=== PATIENT | female | born 1930 | race Caucasian/White ===

== ENCOUNTER 2017-07-16 09:08 | Inpatient (IN) | payer MEDICARE, MEDICAID ==
[~2017-07-16] VITALS: Ht 157.5 cm; Wt 54.4 kg
[~2017-07-16 09:08] MED LIST: DIOVAN160 MG ORAL; LIPITOR20 MG ORAL; SYNTHROID25 MCG ORAL; UNOBMED
[2017-07-16] MEDS ORDERED: cefTRIAXone 1 GM in NS 55 ML IV STA (09:10)
[2017-07-16] MEDS ORDERED: Acetaminophen 500mg (ES) tab ORAL ONE (09:15)
--- NOTE | 2017-07-16 09:20 | Emergency Room Report ---
History of Present Illness General Chief Complaint: Fever Source: Patient, Significant Other, EMS Present Illness HPI Patient presents with fevers, chills and productive cough. She's been worsening over the last few days. No medications have been taken. She denies any medical problems. She also complains about some chest pain. More pleuritic - denied pain to RN. The patient denies any nausea vomiting diarrhea dysuria. She feels weakness and decreased appetite at this time. No headache, rashes, joint pain, abdominal pain. H/O HTN, hypothyroidism, hypercholesterolemia Allergies: Coded Allergies: No Known Allergies (Unverified , 11/09/12) Patient History Past Medical History: see triage record Social History: Denies: smoking, alcohol use, drug use Social History Narrative Reviewed Nursing Documentation: PMH: Agreed; PSxH: Agreed Nursing Documentation-PMH Past Medical History: No Stated History Hx Cardiac Problems: Yes Hx Hypertension: Yes Hx Cancer: No Hx Gastrointestinal Problems: No Hx Neurological Problems: No Review of Systems All Other Systems: negative except mentioned in HPI Physical Exam Vital Signs Date Time Temp Pulse Resp B/P (MAP) Pulse Ox O2 Delivery O2 Flow Rate FiO2 07/16/17 09:04 101.2 85 18 160/93 98 Room Air 101.1 Sp02 EP Interpretation: reviewed, normal General Appearance: no apparent distress, GCS 15, non-toxic, other - Frail Head: normocephalic Eyes: bilateral eye normal inspection, bilateral eye PERRL ENT: moist mucus membranes Neck: supple Respiratory: lungs clear, normal breath sounds, no respiratory distress, decreased breath sounds - L Cardiovascular #1: regular rate, rhythm Cardiovascular #2: 2+ radial (R) Gastrointestinal: normal inspection, normal bowel sounds, non tender, no mass, non-distended Musculoskeletal: back normal, gait/station normal, normal range of motion Neurologic: alert, oriented x3, grossly normal Psychiatric: mood/affect normal Skin: normal inspection, warm/dry Medical Decision Making Diagnostic Impression: Primary Impression: Pneumonia Qualified Codes: J18.1 - Lobar pneumonia, unspecified organism Additional Impressions: Pleural effusion, left UTI (urinary tract infection) Qualified Codes: N30.00 - Acute cystitis without hematuria Hypokalemia Leukopenia Qualified Codes: D72.819 - Decreased white blood cell count, unspecified ER Course The patient presents with fever, cough and chest pain. Differential includes pneumonia, bronchitis, bronchospasm, acute myocardial infarction, acute coronary syndrome amongst others. Evaluation will be with EKG, chest x-ray and labs including blood culture and lactate. The patient will be treated with gentle IV hydration and less lactate is elevated. She also given Tylenol and antibiotics. Due to the patient's advanced age and state of debility at this time the patient will need to be admitted to the hospital. EKG without injury. CXR with L effusion and infiltrate. WBC low with L shift. CMP unremarkable (low K, slightly high glucose). BNP minimally elevated. Lactate normal. Troponin negative. Antibiotics administered to cover UTI and pneumonia. Patient improved with treatment, though still with generalized weakness. Admit med Dr. De La Rosa (per request of Dr. York for PMD). Laboratory Tests Test 07/16/17 09:24 07/16/17 11:30 White Blood Count 4.1 K/UL (4.8-10.8) L Red Blood Count 5.33 M/UL (4.20-5.40) Hemoglobin 14.8 G/DL (12.0-16.0) Hematocrit 43.9 % (37.0-47.0) Mean Corpuscular Volume 82 FL (80-99) Mean Corpuscular Hemoglobin 27.8 PG (27.0-31.0) Mean Corpuscular Hemoglobin Concent 33.8 G/DL (32.0-36.0) Red Cell Distribution Width 12.5 % (11.6-14.8) Platelet Count 108 K/UL (150-450) L Mean Platelet Volume 7.6 FL (6.5-10.1) Neutrophils (%) (Auto) % (45.0-75.0) Lymphocytes (%) (Auto) % (20.0-45.0) Monocytes (%) (Auto) % (1.0-10.0) Eosinophils (%) (Auto) % (0.0-3.0) Basophils (%) (Auto) % (0.0-2.0) Differential Total Cells Counted 100 Neutrophils % (Manual) 84 % (45-75) H Lymphocytes % (Manual) 9 % (20-45) L Monocytes % (Manual) 7 % (1-10) Eosinophils % (Manual) 0 % (0-3) Basophils % (Manual) 0 % (0-2) Band Neutrophils 0 % (0-8) Platelet Estimate Decreased L Platelet Morphology Normal Red Blood Cell Morphology Normal Prothrombin Time 9.9 SEC (9.30-11.50) Prothrombin Time INR 0.9 (0.9-1.1) PTT 28 SEC (23-33) Sodium Level 134 MMOL/L (136-145) L Potassium Level 3.2 MMOL/L (3.5-5.1) L Chloride Level 99 MMOL/L (98-107) Carbon Dioxide Level 27 MMOL/L (21-32) Anion Gap 8 mmol/L (5-15) Blood Urea Nitrogen 14 mg/dL (7-18) Creatinine 1.2 MG/DL (0.55-1.30) Estimate Glomerular Filtration Rate mL/min (>60) Glucose Level 138 MG/DL (74-106) H Lactic Acid Level 1.30 mmol/L (0.66-2.22) Calcium Level 8.7 MG/DL (8.5-10.1) Total Bilirubin 1.2 MG/DL (0.2-1.0) H Direct Bilirubin 0.3 MG/DL (0.0-0.3) Aspartate Amino Transferase (AST) 45 U/L (15-37) H Alanine Aminotransferase (ALT) 35 U/L (12-78) Alkaline Phosphatase 67 U/L (46-116) Total Creatine Kinase 65 U/L (26-308) Troponin I 0.000 ng/mL (0.000-0.056) Pro-B-Type Natriuretic Peptide 419 pg/mL (0-125) H Total Protein 7.5 G/DL (6.4-8.2) Albumin 3.8 G/DL (3.4-5.0) Globulin 3.7 g/dL Albumin/Globulin Ratio 1.0 (1.0-2.7) Urine Color Yellow Urine Appearance Clear Urine pH 6 (4.5-8.0) Urine Specific [place] 1.020 (1.005-1.035) Urine Protein 2+ (NEGATIVE) H Urine Glucose (UA) Negative (NEGATIVE) Urine Ketones 3+ (NEGATIVE) H Urine Occult Blood 5+ (NEGATIVE) H Urine Nitrite Negative (NEGATIVE) Urine Bilirubin Negative (NEGATIVE) Urine Urobilinogen 1 MG/DL (0.0-1.0) H Urine Leukocyte Esterase 3+ (NEGATIVE) H Urine RBC 10-15 /HPF (0 - 2) H Urine WBC 10-15 /HPF (0 - 2) H Urine Squamous Epithelial Cells Few /LPF (NONE/OCC) Urine Bacteria Few /HPF (NONE) Microbiology Date/Time Source Procedure Growth Status 07/16/17 09:24 Nasal Nares Influenza Types A,B Antigen (DEVANG) - Final Complete EKG Diagnostic Results Rate: normal Rhythm: NSR ST Segments: no acute changes - T inversions septally Rhythm Strip Diag. Results EP Interpretation: yes Rhythm: NSR, no PVC's, no ectopy Chest X-Ray Diagnostic Results Chest X-Ray Diagnostic Results : Chest X-Ray Ordered: Yes # of Views/Limited/Complete: 1 View Indication: Other EP Interpretation: Yes Interpretation: no pneumothorax, other - LLL infiltrate and infiltrate Impression: Other Electronically Signed by: Electronically signed by Arcadio Wong MD Last Vital Signs Date Time Temp Pulse Resp B/P (MAP) Pulse Ox O2 Delivery O2 Flow Rate FiO2 07/16/17 20:07 72 18 Room Air 21 07/16/17 19:55 99.1 07/16/17 15:23 121/60 94 Status: improved Disposition: ADMITTED INPATIENT Condition: Serious Arcadio Wong M.D. Jul 16, 2017 09:19
[2017-07-16 09:35] VITALS: BP 150/80
[2017-07-16 09:42] LABS: HEMATOCRIT 43.9 % (37.0-47.0); HEMOGLOBIN 14.8 G/DL (12.0-16.0); MEAN CORPUSCULAR VOLUME 82 FL (80-99); PLATELET COUNT 108 K/UL (150-450); RED BLOOD COUNT 5.33 M/UL (4.20-5.40); RED CELL DISTRIBUTION WIDTH 12.5 % (11.6-14.8); WHITE BLOOD COUNT 4.1 K/UL (4.8-10.8)
[2017-07-16 09:48] LABS: INR 0.9 (0.9-1.1)
[2017-07-16 10:04] LABS: ANION GAP 8 mmol/L (5-15); BLOOD UREA NITROGEN 14 mg/dL (7-18); CALCIUM 8.7 MG/DL (8.5-10.1); CARBON DIOXIDE 27 MMOL/L (21-32); CHLORIDE 99 MMOL/L (98-107); CREATININE 1.2 MG/DL (0.55-1.30); POTASSIUM 3.2 MMOL/L (3.5-5.1); SODIUM 134 MMOL/L (136-145)
[2017-07-16] MEDS ORDERED: cefTRIAXone 1 GM in D5W 55 ML IV STA (10:12)
[2017-07-16 10:15] LABS: ALANINE AMINOTRANSFERASE 35 U/L (12-78); ALBUMIN 3.8 G/DL (3.4-5.0); ALKALINE PHOSPHATASE 67 U/L (46-116); ASPARTATE AMINO TRANSFERASE 45 U/L (15-37); BILIRUBIN,TOTAL 1.2 MG/DL (0.2-1.0); CREATINE KINASE 65 U/L (26-308)
--- NOTE | 2017-07-16 10:21 | Diagnostic Imaging Report ---
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 Lungs and pleural spaces remain clear. The heart size is probably normal. Impression: No acute process
[2017-07-16 10:25] LABS: BILIRUBIN,DIRECT 0.3 MG/DL (0.0-0.3)
[2017-07-16 11:40] LABS: APPEARANCE,URINE CLEAR; BILIRUBIN, URINE NEGATIVE (NEGATIVE); GLUCOSE, URINE (UA) NEGATIVE (NEGATIVE); KETONES,URINE 3+ (NEGATIVE); LEUKOCYTE ESTERASE ,URINE 3+ (NEGATIVE); NITRITE,URINE NEGATIVE (NEGATIVE); PH,URINE 6 (4.5-8.0); PROTEIN,URINE 2+ (NEGATIVE); UROBILINOGEN,URINE 1 MG/DL (0.0-1.0)
[2017-07-16 11:57] LABS: COLOR,URINE YELLOW
[2017-07-16] MEDS ORDERED: Mylanta II UD 30ml ORAL PRN (12:45)
[2017-07-16] MEDS ORDERED: Miralax 17gm pkt ORAL PRN (12:45)
[2017-07-16] MEDS ORDERED: Albuterol/Ipratropium 3ml neb HHN PRN (12:45)
[2017-07-16] MEDS ORDERED: Nitroglycerin Subl 0.4mg tab SL PRN (12:45)
[2017-07-16] MEDS ORDERED: Promethazine/Codeine 5ml UD ORAL PRN (12:45)
[2017-07-16 13:01] VITALS: BP 116/65
[2017-07-16 13:33] VITALS: BP 120/67
[2017-07-16] MEDS: Lisinopril 20mg tab ORAL SCH (14:12)
--- NOTE | 2017-07-16 14:26 | Consultation ---
History of Present Illness General Date patient seen: Jul 16, 2017 Chief Complaint: Fever Present Illness HPI 87 year old lady with PMHx of HTN, hypothyroidism, hypercholesterolemia presents with fevers, chills and productive cough. She's been worsening over the last few days. She had a fever of 101 in ER and admitted to telemetry for possible pneumonia and sepsis. she looks comfortable with bouts of cough. Allergies: Coded Allergies: No Known Allergies (Unverified , 11/09/12) Medication History Scheduled Atorvastatin Calcium* (Lipitor*), 20 MG ORAL BEDTIME, (Reported) Levothyroxine Sodium* (Synthroid*), 25 MCG ORAL DAILY, (Reported) Valsartan (Diovan), 160 MG ORAL DAILY, (Reported) Patient History Healthcare decision maker Resuscitation status Full Code Advanced Directive on File Past Medical/Surgical History Past Medical/Surgical History: (1) Hypothyroidism (2) Pneumonia (3) UTI (urinary tract infection) (4) Hypertension Review of Systems All Other Systems: negative except mentioned in HPI Physical Exam General Appearance: WD/WN Lines, tubes and drains: peripheral HEENT: normocephalic, atraumatic Neck: non-tender, normal alignment Respiratory/Chest: rhonchi - left, rhonchi - right Breasts: no masses Cardiovascular/Chest: normal peripheral pulses Abdomen: normal bowel sounds, soft Genitourinary/Rectal: normal genital exam, normal rectal exam Skin Exam: normal pigmentation 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 Last 24 Hour Vital Signs Date Time Temp Pulse Resp B/P (MAP) Pulse Ox O2 Delivery O2 Flow Rate FiO2 07/16/17 14:12 120/67 07/16/17 13:33 97.9 64 20 120/67 95 Room Air 97.9 07/16/17 13:32 98.5 67 23 116/65 95 Room Air 07/16/17 13:01 101.0 67 23 116/65 95 Room Air 101.0 07/16/17 10:43 101.9 07/16/17 09:45 102.1 07/16/17 09:35 102.1 86 18 150/80 98 Room Air 102.1 07/16/17 09:04 101.2 85 18 160/93 98 Room Air 101.1 Laboratory Tests Test 07/16/17 09:24 07/16/17 11:30 White Blood Count 4.1 K/UL (4.8-10.8) L Red Blood Count 5.33 M/UL (4.20-5.40) Hemoglobin 14.8 G/DL (12.0-16.0) Hematocrit 43.9 % (37.0-47.0) Mean Corpuscular Volume 82 FL (80-99) Mean Corpuscular Hemoglobin 27.8 PG (27.0-31.0) Mean Corpuscular Hemoglobin Concent 33.8 G/DL (32.0-36.0) Red Cell Distribution Width 12.5 % (11.6-14.8) Platelet Count 108 K/UL (150-450) L Mean Platelet Volume 7.6 FL (6.5-10.1) Neutrophils (%) (Auto) % (45.0-75.0) Lymphocytes (%) (Auto) % (20.0-45.0) Monocytes (%) (Auto) % (1.0-10.0) Eosinophils (%) (Auto) % (0.0-3.0) Basophils (%) (Auto) % (0.0-2.0) Differential Total Cells Counted 100 Neutrophils % (Manual) 84 % (45-75) H Lymphocytes % (Manual) 9 % (20-45) L Monocytes % (Manual) 7 % (1-10) Eosinophils % (Manual) 0 % (0-3) Basophils % (Manual) 0 % (0-2) Band Neutrophils 0 % (0-8) Platelet Estimate Decreased L Platelet Morphology Normal Red Blood Cell Morphology Normal Prothrombin Time 9.9 SEC (9.30-11.50) Prothromb Time International Ratio 0.9 (0.9-1.1) Activated Partial Thromboplast Time 28 SEC (23-33) Sodium Level 134 MMOL/L (136-145) L Potassium Level 3.2 MMOL/L (3.5-5.1) L Chloride Level 99 MMOL/L (98-107) Carbon Dioxide Level 27 MMOL/L (21-32) Anion Gap 8 mmol/L (5-15) Blood Urea Nitrogen 14 mg/dL (7-18) Creatinine 1.2 MG/DL (0.55-1.30) Estimat Glomerular Filtration Rate mL/min (>60) Glucose Level 138 MG/DL (74-106) H Lactic Acid Level 1.30 mmol/L (0.66-2.22) Calcium Level 8.7 MG/DL (8.5-10.1) Total Bilirubin 1.2 MG/DL (0.2-1.0) H Direct Bilirubin 0.3 MG/DL (0.0-0.3) Aspartate Amino Transf (AST/SGOT) 45 U/L (15-37) H Alanine Aminotransferase (ALT/SGPT) 35 U/L (12-78) Alkaline Phosphatase 67 U/L (46-116) Total Creatine Kinase 65 U/L (26-308) Troponin I 0.000 ng/mL (0.000-0.056) Pro-B-Type Natriuretic Peptide 419 pg/mL (0-125) H Total Protein 7.5 G/DL (6.4-8.2) Albumin 3.8 G/DL (3.4-5.0) Globulin 3.7 g/dL Albumin/Globulin Ratio 1.0 (1.0-2.7) Urine Color Yellow Urine Appearance Clear Urine pH 6 (4.5-8.0) Urine Specific [place] 1.020 (1.005-1.035) Urine Protein 2+ (NEGATIVE) H Urine Glucose (UA) Negative (NEGATIVE) Urine Ketones 3+ (NEGATIVE) H Urine Occult Blood 5+ (NEGATIVE) H Urine Nitrite Negative (NEGATIVE) Urine Bilirubin Negative (NEGATIVE) Urine Urobilinogen 1 MG/DL (0.0-1.0) H Urine Leukocyte Esterase 3+ (NEGATIVE) H Urine RBC 10-15 /HPF (0 - 2) H Urine WBC 10-15 /HPF (0 - 2) H Urine Squamous Epithelial Cells Few /LPF (NONE/OCC) Urine Bacteria Few /HPF (NONE) Microbiology Date/Time Source Procedure Growth Status 07/16/17 09:24 Nasal Nares Influenza Types A,B Antigen (DEVANG) - Final Complete Height (Feet): 5 Height (Inches): 2.00 Weight (Pounds): 120 Medications Current Medications Medications (Trade) Dose Ordered Sig/Alisson Route PRN Reason Start Time Stop Time Status Last Admin Dose Admin Acetaminophen (Tylenol) 650 mg Q4H PRN ORAL fever 07/16/17 12:45 08/15/17 12:44 Al Hydroxide/Mg Hydroxide (Mylanta II) 30 ml Q6H PRN ORAL dyspepsia 07/16/17 12:45 08/15/17 12:44 Albuterol/ Ipratropium (Albuterol/ Ipratropium) 3 ml Q4H PRN HHN Shortness of Breath 07/16/17 12:45 07/21/17 12:44 Cefepime HCl 1 gm/ Dextrose 55 ml @ 110 mls/hr Q24H IV 07/16/17 18:00 07/23/17 17:59 Clonidine HCl (Catapres Tab) 0.1 mg Q4H PRN ORAL For High Blood Pressure 07/16/17 13:00 08/15/17 12:59 Heparin Sodium (Porcine) (Heparin 5000 units/ml) 5,000 units EVERY 12 HOURS SUBQ 07/16/17 21:00 08/15/17 20:59 Levothyroxine Sodium (Synthroid) 25 mcg ACBREAKFAST ORAL 07/17/17 06:30 08/16/17 06:29 Lisinopril (Prinivil) 40 mg DAILY ORAL 07/16/17 13:00 08/15/17 12:59 07/16/17 14:12 Nitroglycerin (Ntg) 0.4 mg Q5M PRN SL Prn Chest Pain 07/16/17 12:45 08/15/17 12:44 Ondansetron HCl (Zofran) 4 mg Q6H PRN IVP Nausea & Vomiting 07/16/17 12:45 08/15/17 12:44 Polyethylene Glycol (Miralax) 17 gm DAILYPRN PRN ORAL Constipation 07/16/17 12:45 08/15/17 12:44 Promethazine HCl/ Codeine (Phenergan with Codeine) 5 ml Q4H PRN ORAL For Cough 07/16/17 12:45 08/15/17 12:44 Temazepam (Restoril) 15 mg HSPRN PRN ORAL Insomnia 07/16/17 12:45 07/23/17 12:44 Vancomycin HCl (Vanco rx to dose) 1 ea DAILY PRN MISC Per rx protocol 07/16/17 12:45 08/15/17 12:44 Vancomycin/Sodium Chloride 250 ml @ 166.667 mls/hr ONCE IVPB 07/16/17 15:00 07/16/17 17:00 Assessment/Plan Problem List: (1) Pneumonia ICD Codes: J18.9 - Pneumonia, unspecified organism SNOMED: 963824010 Qualifiers: Qualified Codes: J18.1 - Lobar pneumonia, unspecified organism (2) Fever ICD Codes: R50.9 - Fever, unspecified SNOMED: 808583167 (3) Pleural effusion, left ICD Codes: J90 - Pleural effusion, not elsewhere classified SNOMED: 10296498 (4) Hypothyroidism ICD Codes: E03.9 - Hypothyroidism, unspecified SNOMED: 43102903 (5) Hypertension ICD Codes: I10 - Essential (primary) hypertension SNOMED: 76317041 Assessment/Plan respiratory treatment check sputum chest PT iv abx monitor BP review home meds Dottie Flores MD Jul 16, 2017 14:26
--- NOTE | 2017-07-16 14:50 | History & Physical ---
History and Physical History & Physicial Dictated for Int Med-Dr Tai no. [id number]. SALUD GILLILAND Jul 16, 2017 14:50
[2017-07-16] MEDS ORDERED: Vancomycin 750mg/NS 250ml IVPB SCH (15:00)
[2017-07-16 15:23] VITALS: BP 121/60
[2017-07-16] MEDS ORDERED: Cefepime HCl 1 GM in D5W 55 ML IV SCH (18:00)
[2017-07-16 20:00] VITALS: BP 143/89
--- NOTE | 2017-07-16 20:00 | History and Physical Report ---
DATE OF ADMISSION: 07/16/2017 CHIEF COMPLAINT: This is an 87-year-old white female who presents with chief complaint of fever and cough. HISTORY OF PRESENT ILLNESS: Began five days prior to admission, the patient began to experience fever. The patient also had a sore throat. Temperature reached to 102 degrees Fahrenheit. The patient also has a cough productive of a greenish sputum. The patient presented to [facility] emergency room. The patient was admitted for fever and cough to rule out pneumonia. REVIEW OF SYSTEMS: CONSTITUTIONAL: The patient denies weight loss or weight gain. The patient complains of fevers as above. The patient complains of chills. HEENT: The patient denies ear or throat pain. The patient denies headache. CARDIOVASCULAR: The patient denies palpitations or chest pain. CHEST: The patient complains of shortness of breath. The patient complains of cough as above. The patient denies wheezes. ABDOMEN: The patient denies nausea, vomiting, diarrhea, or constipation. GENITOURINARY: The patient denies dysuria or increased frequency of urination. NEUROMUSCULAR: The patient denies seizures or generalized weakness. PAST MEDICAL HISTORY: Significant for: 1. Hypertension. 2. Hypothyroidism. 3. Hypercholesterolemia. PAST SURGICAL HISTORY: Significant for left hip replacement in 2011. CURRENT MEDICATIONS: 1. Atorvastatin 20 mg p.o. daily. 2. Levoxyl 0.025 mg p.o. daily. 3. Valsartan 160 mg p.o. daily. ALLERGIES: No known drug allergies. SOCIAL HISTORY: The patient is . The patient denies tobacco or alcohol. PHYSICAL EXAMINATION: VITAL SIGNS: Temperature febrile 102.1, respirations 23, pulse 67, blood pressure 115/65, pulse ox 95% on room air. GENERAL: The patient is well-developed and well-nourished slightly obese white female, in no apparent distress. HEENT: Pupils are equal responsive to light and accommodation. Extraocular movements are intact. NECK: Supple without lymphadenopathy. CHEST: Few scattered rales at bilateral bases, otherwise clear to auscultation bilaterally without wheezes or CARDIOVASCULAR: Regular rhythm and rate. S1, S2 are normal without murmurs, rubs, or gallops. ABDOMEN: Soft, nontender, and nondistended. Positive bowel sounds. No evidence of hepatosplenomegaly. Currently, no rebound or guarding noted. EXTREMITIES: Negative for clubbing, cyanosis, or edema. NEUROLOGIC: Cranial nerves II to XII are grossly intact without focal deficits. Motor strength is 5/5 bilaterally. Deep tendon reflexes are 2+ plantar. LABORATORY STUDIES: WBC 4.1, hemoglobin 14.8, hematocrit 43.9, platelets 108,000. Sodium 134, potassium 3.2, chloride 99, CO2 27, BUN 14, creatinine 1.2, glucose 138. Chest x-ray was reported as no acute disease. ASSESSMENT: This is an 87-year-old white female. 1. Fever. 2. Cough. 3. Shortness of breath. 4. Chest pain. 5. Hypokalemia. 6. Hypertension. 7. Hypothyroidism. 8. Hypercholesterolemia. TREATMENT: 1. Fever/cough/chest pain. Chest pain is pleuritic. The patient is currently on the telemetry unit. The patient has been started empirically on cefepime and vancomycin. Pulmonology consultation obtained with Dr. Flores. We will follow recommendations of Pulmonary. 2. Hypokalemia, the patient received potassium supplementation. 3. Hypertension. Continue valsartan as above. 4. Hypothyroidism. Continue Synthroid as above. 5. Hypercholesterolemia. Continue atorvastatin as above. Rafi Coleman M.D. DR: Grazyna JOB#: [id number] CC:
--- NOTE | 2017-07-16 21:01 | Consultation ---
Consult Note Consult Note ID DIC# [id number] Uziel Ansari MD Jul 16, 2017 21:01
[2017-07-16] MEDS: Heparin 5000 units/ml inj SUBQ SCH (21:31)
[2017-07-17] VITALS: BP 150/75
[2017-07-17 04:00] VITALS: BP 154/83
[2017-07-17] MEDS ORDERED: Levothyroxine 25mcg tab ORAL SCH (06:30)
[2017-07-17 07:47] LABS: ANION GAP 8 mmol/L (5-15); BLOOD UREA NITROGEN 16 mg/dL (7-18); CALCIUM 8.3 MG/DL (8.5-10.1); CARBON DIOXIDE 25 MMOL/L (21-32); CHLORIDE 101 MMOL/L (98-107); CREATININE 1.1 MG/DL (0.55-1.30); POTASSIUM 3.6 MMOL/L (3.5-5.1); SODIUM 134 MMOL/L (136-145)
[2017-07-17 07:49] LABS: BASOPHILS % (AUTO) 1.3 % (0.0-2.0); EOSINOPHILS % (AUTO) 0.2 % (0.0-3.0); HEMATOCRIT 38.5 % (37.0-47.0); HEMOGLOBIN 13.7 G/DL (12.0-16.0); LYMPHOCYTES % (AUTO) 19.1 % (20.0-45.0); MEAN CORPUSCULAR VOLUME 82 FL (80-99); MONOCYTES % (AUTO) 11.2 % (1.0-10.0); NEUTROPHILS % (AUTO) 68.2 % (45.0-75.0); PLATELET COUNT 107 K/UL (150-450); RED BLOOD COUNT 4.72 M/UL (4.20-5.40); RED CELL DISTRIBUTION WIDTH 12.7 % (11.6-14.8)
[2017-07-17 07:52] LABS: ALBUMIN 3.5 G/DL (3.4-5.0); ANION GAP 8 mmol/L (5-15); BLOOD UREA NITROGEN 16 mg/dL (7-18); CALCIUM 8.3 MG/DL (8.5-10.1); CARBON DIOXIDE 25 MMOL/L (21-32); CHLORIDE 101 MMOL/L (98-107); CREATININE 1.1 MG/DL (0.55-1.30); PHOSPHORUS 2.9 MG/DL (2.5-4.9); POTASSIUM 3.6 MMOL/L (3.5-5.1); SODIUM 134 MMOL/L (136-145)
[2017-07-17 08:00] VITALS: BP 115/75
[2017-07-17] MEDS ORDERED: Azithromycin 250mg tab ORAL SCH (09:00)
[2017-07-17] MEDS: Heparin 5000 units/ml inj SUBQ SCH ×2 (09:00→20:34)
[2017-07-17] MEDS: Lisinopril 20mg tab ORAL SCH (09:48)
[2017-07-17 12:00] VITALS: BP 128/69
--- NOTE | 2017-07-17 12:17 | Pulmonology Progress Note ---
Assessment/Plan Problems: (1) Pneumonia (2) Fever (3) Pleural effusion, left (4) Hypothyroidism (5) Hypertension Assessment/Plan improving no sputum yet continue abx check cultures monitor BP dvt prophylaxis Subjective Interval Events: still coughing, afebrile Allergies: Coded Allergies: No Known Allergies (Unverified , 11/09/12) Objective Last 24 Hour Vital Signs Date Time Temp Pulse Resp B/P (MAP) Pulse Ox O2 Delivery O2 Flow Rate FiO2 07/17/17 09:48 115/75 07/17/17 08:00 73 07/17/17 08:00 99.1 72 17 115/75 97 Room Air 99.1 07/17/17 07:45 72 20 Room Air 21 07/17/17 04:00 70 07/17/17 04:00 97.6 75 22 154/83 93 Room Air 97.6 07/17/17 00:00 70 07/17/17 00:00 97.6 70 20 150/75 92 Room Air 97.6 07/16/17 20:07 72 18 Room Air 21 07/16/17 20:00 98.1 84 18 143/89 90 Room Air 98.1 07/16/17 20:00 79 07/16/17 19:55 99.1 07/16/17 18:56 102.0 07/16/17 16:00 73 07/16/17 15:23 98.0 68 20 121/60 94 Room Air 98.0 07/16/17 15:20 73 18 Room Air 21 07/16/17 15:10 73 18 94 Room Air 21 07/16/17 14:12 120/67 07/16/17 13:33 97.9 64 20 120/67 95 Room Air 97.9 07/16/17 13:32 98.5 67 23 116/65 95 Room Air 07/16/17 13:01 101.0 67 23 116/65 95 Room Air 101.0 Intake and Output 07/16/17 07/17/17 19:00 07:00 Intake Total 490.000 ml Output Total 0 ml Balance 490.000 ml Intake Oral 240 ml IV Total 250.000 ml Output Urine Total 0 ml # Voids 1 Objective General Appearance: WD/WN Lines, tubes and drains: peripheral HEENT: normocephalic, atraumatic Neck: non-tender, normal alignment Respiratory/Chest: rhonchi - left, rhonchi - right Breasts: no masses Cardiovascular/Chest: normal peripheral pulses Abdomen: normal bowel sounds, soft Genitourinary/Rectal: normal genital exam, normal rectal exam Skin Exam: normal pigmentation 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 Microbiology Date/Time Source Procedure Growth Status 07/16/17 09:24 Nasal Nares Influenza Types A,B Antigen (DEVANG) - Final Complete 07/16/17 11:30 Urine,Clean Catch Urine Culture - Preliminary Resulted Laboratory Tests 07/17/17 07:20: White Blood Count 4.0L, Red Blood Count 4.72, Hemoglobin 13.7, Hematocrit 38.5, Mean Corpuscular Volume 82, Mean Corpuscular Hemoglobin 29.0, Mean Corpuscular Hemoglobin Concent 35.5, Red Cell Distribution Width 12.7, Platelet Count 107L, Mean Platelet Volume 6.9, Neutrophils (%) (Auto) 68.2, Lymphocytes (%) (Auto) 19.1L, Monocytes (%) (Auto) 11.2H, Eosinophils (%) (Auto) 0.2, Basophils (%) ( Auto) 1.3, Sodium Level 134L, Potassium Level 3.6, Chloride Level 101, Carbon Dioxide Level 25, Anion Gap 8, Blood Urea Nitrogen 16, Creatinine 1.1, Estimat Glomerular Filtration Rate , Glucose Level 102, Calcium Level 8.3L, Phosphorus Level 2.9, Albumin 3.5 Current Medications Medications (Trade) Dose Ordered Sig/Alisson Route PRN Reason Start Time Stop Time Status Last Admin Dose Admin Acetaminophen (Tylenol) 650 mg Q4H PRN ORAL fever 07/16/17 12:45 08/15/17 12:44 07/16/17 18:56 Al Hydroxide/Mg Hydroxide (Mylanta II) 30 ml Q6H PRN ORAL dyspepsia 07/16/17 12:45 08/15/17 12:44 Albuterol/ Ipratropium (Albuterol/ Ipratropium) 3 ml Q4H PRN HHN Shortness of Breath 07/16/17 12:45 07/21/17 12:44 Azithromycin (Zithromax) 500 mg DAILY ORAL 07/17/17 09:00 07/24/17 08:59 07/17/17 09:48 Cefepime HCl 1 gm/ Dextrose 55 ml @ 110 mls/hr Q24H IV 07/16/17 18:00 07/23/17 17:59 07/16/17 18:49 Clonidine HCl (Catapres Tab) 0.1 mg Q4H PRN ORAL For High Blood Pressure 07/16/17 13:00 08/15/17 12:59 Heparin Sodium (Porcine) (Heparin 5000 units/ml) 5,000 units EVERY 12 HOURS SUBQ 07/16/17 21:00 08/15/17 20:59 07/16/17 21:31 Levothyroxine Sodium (Synthroid) 25 mcg ACBREAKFAST ORAL 07/17/17 06:30 08/16/17 06:29 07/17/17 06:25 Lisinopril (Prinivil) 40 mg DAILY ORAL 07/16/17 13:00 08/15/17 12:59 07/17/17 09:48 Nitroglycerin (Ntg) 0.4 mg Q5M PRN SL Prn Chest Pain 07/16/17 12:45 08/15/17 12:44 Ondansetron HCl (Zofran) 4 mg Q6H PRN IVP Nausea & Vomiting 07/16/17 12:45 08/15/17 12:44 Polyethylene Glycol (Miralax) 17 gm DAILYPRN PRN ORAL Constipation 07/16/17 12:45 08/15/17 12:44 Promethazine HCl/ Codeine (Phenergan with Codeine) 5 ml Q4H PRN ORAL For Cough 07/16/17 12:45 08/15/17 12:44 Temazepam (Restoril) 15 mg HSPRN PRN ORAL Insomnia 07/16/17 12:45 07/23/17 12:44 Dottie Flores MD Jul 17, 2017 12:17
--- NOTE | 2017-07-17 12:39 | Internal Med Progress Note ---
Subjective Date of Service: Jul 17, 2017 Physician Name Salud Gilliland Attending Physician Chevy De La Rosa MD Current Medications Medications (Trade) Dose Ordered Sig/Alisson Route PRN Reason Start Time Stop Time Status Last Admin Dose Admin Acetaminophen (Tylenol) 650 mg Q4H PRN ORAL fever 07/16/17 12:45 08/15/17 12:44 07/16/17 18:56 Al Hydroxide/Mg Hydroxide (Mylanta II) 30 ml Q6H PRN ORAL dyspepsia 07/16/17 12:45 08/15/17 12:44 Albuterol/ Ipratropium (Albuterol/ Ipratropium) 3 ml Q4H PRN HHN Shortness of Breath 07/16/17 12:45 07/21/17 12:44 Azithromycin (Zithromax) 500 mg DAILY ORAL 07/17/17 09:00 07/24/17 08:59 07/17/17 09:48 Cefepime HCl 1 gm/ Dextrose 55 ml @ 110 mls/hr Q24H IV 07/16/17 18:00 07/23/17 17:59 07/16/17 18:49 Clonidine HCl (Catapres Tab) 0.1 mg Q4H PRN ORAL For High Blood Pressure 07/16/17 13:00 08/15/17 12:59 Heparin Sodium (Porcine) (Heparin 5000 units/ml) 5,000 units EVERY 12 HOURS SUBQ 07/16/17 21:00 08/15/17 20:59 07/16/17 21:31 Levothyroxine Sodium (Synthroid) 25 mcg ACBREAKFAST ORAL 07/17/17 06:30 08/16/17 06:29 07/17/17 06:25 Lisinopril (Prinivil) 40 mg DAILY ORAL 07/16/17 13:00 08/15/17 12:59 07/17/17 09:48 Nitroglycerin (Ntg) 0.4 mg Q5M PRN SL Prn Chest Pain 07/16/17 12:45 08/15/17 12:44 Ondansetron HCl (Zofran) 4 mg Q6H PRN IVP Nausea & Vomiting 07/16/17 12:45 08/15/17 12:44 Polyethylene Glycol (Miralax) 17 gm DAILYPRN PRN ORAL Constipation 07/16/17 12:45 08/15/17 12:44 Promethazine HCl/ Codeine (Phenergan with Codeine) 5 ml Q4H PRN ORAL For Cough 07/16/17 12:45 08/15/17 12:44 Temazepam (Restoril) 15 mg HSPRN PRN ORAL Insomnia 07/16/17 12:45 07/23/17 12:44 Allergies: Coded Allergies: No Known Allergies (Unverified , 11/09/12) ROS Limited/Unobtainable: No Constitutional: Reports: no symptoms HEENT: Reports: no symptoms Cardiovascular: Reports: no symptoms Respiratory: Reports: no symptoms Gastrointestinal/Abdominal: Reports: no symptoms Genitourinary: Reports: no symptoms Neurologic/Psychiatric: Reports: no symptoms Subjective 87 YO F admitted with cough and pleuritic chest pain. Now bronchitis. Cover for Int Melchor-Dr De La Rosa Objective Last Vital Signs Date Time Temp Pulse Resp B/P (MAP) Pulse Ox O2 Delivery O2 Flow Rate FiO2 07/17/17 12:00 99.9 64 18 128/69 97 Room Air 99.9 07/17/17 07:45 21 General Appearance: WD/WN, no apparent distress, alert EENT: PERRL/EOMI, normal ENT inspection, TMs normal Neck: non-tender, normal alignment, supple, normal inspection Cardiovascular: normal peripheral pulses, normal rate, regular rhythm, no gallop/murmur, no JVD Respiratory/Chest: chest wall non-tender, no respiratory distress, no accessory muscle use, crackles/rales, rhonchi - bilaterally Abdomen: normal bowel sounds, non tender, soft, no organomegaly, no mass Extremities: normal range of motion, non-tender Skin: normal pigmentation, warm/dry Laboratory Tests Test 07/17/17 07:20 White Blood Count 4.0 K/UL (4.8-10.8) L Red Blood Count 4.72 M/UL (4.20-5.40) Hemoglobin 13.7 G/DL (12.0-16.0) Hematocrit 38.5 % (37.0-47.0) Mean Corpuscular Volume 82 FL (80-99) Mean Corpuscular Hemoglobin 29.0 PG (27.0-31.0) Mean Corpuscular Hemoglobin Concent 35.5 G/DL (32.0-36.0) Red Cell Distribution Width 12.7 % (11.6-14.8) Platelet Count 107 K/UL (150-450) L Mean Platelet Volume 6.9 FL (6.5-10.1) Neutrophils (%) (Auto) 68.2 % (45.0-75.0) Lymphocytes (%) (Auto) 19.1 % (20.0-45.0) L Monocytes (%) (Auto) 11.2 % (1.0-10.0) H Eosinophils (%) (Auto) 0.2 % (0.0-3.0) Basophils (%) (Auto) 1.3 % (0.0-2.0) Sodium Level 134 MMOL/L (136-145) L Potassium Level 3.6 MMOL/L (3.5-5.1) Chloride Level 101 MMOL/L (98-107) Carbon Dioxide Level 25 MMOL/L (21-32) Anion Gap 8 mmol/L (5-15) Blood Urea Nitrogen 16 mg/dL (7-18) Creatinine 1.1 MG/DL (0.55-1.30) Estimat Glomerular Filtration Rate mL/min (>60) Glucose Level 102 MG/DL (74-106) Calcium Level 8.3 MG/DL (8.5-10.1) L Phosphorus Level 2.9 MG/DL (2.5-4.9) Albumin 3.5 G/DL (3.4-5.0) Microbiology Date/Time Source Procedure Growth Status 07/16/17 09:24 Nasal Nares Influenza Types A,B Antigen (DEVANG) - Final Complete 07/16/17 11:30 Urine,Clean Catch Urine Culture - Preliminary Resulted Intake and Output 07/16/17 07/17/17 19:00 07:00 Intake Total 490.000 ml Output Total 0 ml Balance 490.000 ml Intake Oral 240 ml IV Total 250.000 ml Output Urine Total 0 ml # Voids 1 Assessment/Plan Problem List: (1) Hypercholesteremia (2) Chest pain, pleuritic (3) Fever (4) Hypothyroidism Assessment & Plan: Continue levoxyl (5) Hypertension Assessment & Plan: Continue lisinopril and clonidine (6) Bronchitis Assessment & Plan: Continue azithromycin and cefepime Status: progressing SALUD GILLILAND Jul 17, 2017 12:39
[2017-07-17] MEDS ORDERED: Nitroglycerin Subl 0.4mg tab SL PRN (16:30)
[2017-07-17 16:44] VITALS: BP 135/73
[2017-07-17] MEDS ORDERED: Mylanta II UD 30ml ORAL PRN (16:45)
[2017-07-17] MEDS ORDERED: Albuterol/Ipratropium 3ml neb HHN PRN (16:45)
[2017-07-17] MEDS ORDERED: Miralax 17gm pkt ORAL PRN (16:48)
[2017-07-17] MEDS: Cefepime HCl 1 GM in NS 55 ML IV SCH (17:50)
[2017-07-17] MEDS ORDERED: Cefepime HCl 1 GM in NS 55 ML IV SCH (18:00)
[2017-07-17] MEDS: Promethazine/Codeine 5ml UD ORAL PRN (18:50)
--- NOTE | 2017-07-17 19:21 | Infectious Diseases Prog Note ---
Assessment/Plan Assessment/Plan A: Fever, SP CAP Cough , improving Shortness of breath: Improving HTN Hypothyroidism. HLD P: Cont pt on IV Cefepime and Zithro d# 2 / 5 Monitor CBC Monitor BMP Monitor Cxray Monitor culture Subjective Allergies: Coded Allergies: No Known Allergies (Unverified , 11/09/12) Subjective afebrile cough has improved Objective Vital Signs Last 24 Hour Vital Signs Date Time Temp Pulse Resp B/P (MAP) Pulse Ox O2 Delivery O2 Flow Rate FiO2 07/17/17 16:44 98.2 68 18 135/73 96 Room Air 98.2 07/17/17 12:00 99.9 64 18 128/69 97 Room Air 99.9 07/17/17 11:42 69 07/17/17 09:48 115/75 07/17/17 08:00 73 07/17/17 08:00 99.1 72 17 115/75 97 Room Air 99.1 07/17/17 07:45 72 20 Room Air 21 07/17/17 04:00 70 07/17/17 04:00 97.6 75 22 154/83 93 Room Air 97.6 07/17/17 00:00 70 07/17/17 00:00 97.6 70 20 150/75 92 Room Air 97.6 07/16/17 20:07 72 18 Room Air 21 07/16/17 20:00 98.1 84 18 143/89 90 Room Air 98.1 07/16/17 20:00 79 07/16/17 19:55 99.1 Height (Feet): 5 Height (Inches): 2.00 Weight (Pounds): 120 Microbiology Date/Time Source Procedure Growth Status 07/16/17 09:24 Nasal Nares Influenza Types A,B Antigen (DEVANG) - Final Complete 07/16/17 11:30 Urine,Clean Catch Urine Culture - Preliminary Resulted Laboratory Tests Test 07/17/17 07:20 White Blood Count 4.0 K/UL (4.8-10.8) L Red Blood Count 4.72 M/UL (4.20-5.40) Hemoglobin 13.7 G/DL (12.0-16.0) Hematocrit 38.5 % (37.0-47.0) Mean Corpuscular Volume 82 FL (80-99) Mean Corpuscular Hemoglobin 29.0 PG (27.0-31.0) Mean Corpuscular Hemoglobin Concent 35.5 G/DL (32.0-36.0) Red Cell Distribution Width 12.7 % (11.6-14.8) Platelet Count 107 K/UL (150-450) L Mean Platelet Volume 6.9 FL (6.5-10.1) Neutrophils (%) (Auto) 68.2 % (45.0-75.0) Lymphocytes (%) (Auto) 19.1 % (20.0-45.0) L Monocytes (%) (Auto) 11.2 % (1.0-10.0) H Eosinophils (%) (Auto) 0.2 % (0.0-3.0) Basophils (%) (Auto) 1.3 % (0.0-2.0) Sodium Level 134 MMOL/L (136-145) L Potassium Level 3.6 MMOL/L (3.5-5.1) Chloride Level 101 MMOL/L (98-107) Carbon Dioxide Level 25 MMOL/L (21-32) Anion Gap 8 mmol/L (5-15) Blood Urea Nitrogen 16 mg/dL (7-18) Creatinine 1.1 MG/DL (0.55-1.30) Estimat Glomerular Filtration Rate mL/min (>60) Glucose Level 102 MG/DL (74-106) Calcium Level 8.3 MG/DL (8.5-10.1) L Phosphorus Level 2.9 MG/DL (2.5-4.9) Albumin 3.5 G/DL (3.4-5.0) Current Medications Medications (Trade) Dose Ordered Sig/Alisson Route PRN Reason Start Time Stop Time Status Last Admin Dose Admin Acetaminophen (Tylenol) 650 mg Q4H PRN ORAL fever 07/17/17 16:45 08/15/17 12:44 Al Hydroxide/Mg Hydroxide (Mylanta II) 30 ml Q6H PRN ORAL dyspepsia 07/17/17 16:45 08/15/17 16:44 Albuterol/ Ipratropium (Albuterol/ Ipratropium) 3 ml Q4H PRN HHN Shortness of Breath 07/17/17 16:45 07/21/17 12:44 Azithromycin (Zithromax) 500 mg DAILY ORAL 07/18/17 09:00 4/23/18 23:59 Cefepime HCl 1 gm/ Sodium Chloride 55 ml @ 110 mls/hr Q24H IV 07/17/17 18:00 07/23/17 23:59 07/17/17 17:50 Cetylpyridinium Chloride (Cepacol) 1 lozg EVERY 2 HOURS PRN KIM For THROAT Pain 07/17/17 16:45 08/16/17 16:44 07/17/17 17:50 Clonidine HCl (Catapres Tab) 0.1 mg Q4H PRN ORAL for sbp more than 160 07/17/17 17:00 08/15/17 12:59 Heparin Sodium (Porcine) (Heparin 5000 units/ml) 5,000 units EVERY 12 HOURS SUBQ 07/17/17 21:00 08/15/17 20:59 Levothyroxine Sodium (Synthroid) 25 mcg ACBREAKFAST ORAL 07/18/17 06:30 08/16/17 06:29 Lisinopril (Prinivil) 40 mg DAILY ORAL 07/18/17 09:00 08/15/17 12:59 Nitroglycerin (Ntg) 0.4 mg Q5M PRN SL Prn Chest Pain 07/17/17 16:30 08/15/17 12:44 Ondansetron HCl (Zofran) 4 mg Q6H PRN IVP Nausea & Vomiting 07/17/17 16:48 08/15/17 16:47 Polyethylene Glycol (Miralax) 17 gm DAILYPRN PRN ORAL Constipation 07/17/17 16:48 08/16/17 16:47 Promethazine HCl/ Codeine (Phenergan with Codeine) 5 ml Q4H PRN ORAL For Cough 07/17/17 16:45 08/15/17 12:44 07/17/17 18:50 Temazepam (Restoril) 15 mg HSPRN PRN ORAL Insomnia 07/17/17 16:48 07/24/17 16:47 Uziel Ansari MD Jul 17, 2017 19:21
[2017-07-17 20:00] VITALS: BP 131/77
--- NOTE | 2017-07-17 21:24 | Cardiology Report ---
APPROVED REPORT EKG Measurement Heart [id number] Normal sinus rhythm Left axis deviation T wave abnormality, consider anterior ischemia Abnormal ECG
--- NOTE | 2017-07-17 22:00 | Consultation ---
DATE OF CONSULTATION: 07/16/2017 INFECTIOUS DISEASES CONSULTATION CONSULTING PHYSICIAN: Uziel Ansari M.D. REFERRING PHYSICIAN: Dottie Flores M.D. REASON FOR CONSULTATION: Evaluation of the patient for pneumonia. HISTORY OF PRESENT ILLNESS: The patient is an 87-year-old pleasant female with multiple medical problems as listed below, who came to the hospital with chief complaint of fever, cough, and shortness of breath. The patient was admitted to this medical center with impression of community-acquired pneumonia. Infectious Disease consultation has been requested for further evaluation of the patient and antibiotic management. PAST MEDICAL HISTORY: 1. Hypertension. 2. Hypothyroidism. 3. Hyperlipidemia. 4. History of left hip replacement. MEDICATIONS: IV vancomycin and cefepime. ALLERGIES: No known drug allergies. SOCIAL HISTORY: The patient has no history of alcohol or drug abuse. FAMILY HISTORY: Not contributing. PHYSICAL EXAMINATION: VITAL SIGNS: Temperature 98 degrees, blood pressure 135/73, pulse 68, respiratory rate 18, and T-max 102 degrees. HEENT: No pale conjunctivae. No icterus. NECK: No lymphadenopathy. CHEST: Clear. HEART: S1 and S2. ABDOMEN: Soft and nontender. EXTREMITIES: No cyanosis at this time. NEUROLOGIC: Awake. LABORATORY AND DIAGNOSTIC DATA: White blood cells 4, hemoglobin 13, and platelets 107,000. BUN 16 and creatinine 1.3. Rapid influenza test negative. Urine culture pending. Chest x-ray, no acute process. ASSESSMENT: The patient is an 87-year-old female with: 1. Fever. 2. Community-acquired pneumonia/bronchitis, ( negative chest x-ray). 3. Rapid influenza test negative. PLAN: 1. We will continue the patient on cefepime. Add Zithromax, discontinue vancomycin. 2. Monitor CBC. 3. Monitor BMP. 4. Monitor cultures (blood, sputum, and urine). 5. Monitor chest x-ray. 6. Based on the patient's clinical course and labs, we will do further recommendations. Thank you, Dr. Flores, for allowing me to participate in the care of this patient. I will follow the patient with you during this hospitalization. Uziel Ansari M.D. DR: Keila JOB#: [id number] CC:
[2017-07-18 05:27] VITALS: BP 111/65
[2017-07-18] MEDS: Levothyroxine 25mcg tab ORAL SCH (06:19)
[2017-07-18 06:22] LABS: HEMATOCRIT 36.5 % (37.0-47.0); HEMOGLOBIN 13.1 G/DL (12.0-16.0); MEAN CORPUSCULAR VOLUME 81 FL (80-99); PLATELET COUNT 97 K/UL (150-450); RED BLOOD COUNT 4.49 M/UL (4.20-5.40); RED CELL DISTRIBUTION WIDTH 12.5 % (11.6-14.8); WHITE BLOOD COUNT 3.3 K/UL (4.8-10.8)
[2017-07-18 06:44] LABS: ALANINE AMINOTRANSFERASE 27 U/L (12-78); ALBUMIN 3.1 G/DL (3.4-5.0); ALBUMIN/GLOBULIN RATIO 0.9 (1.0-2.7); ALKALINE PHOSPHATASE 48 U/L (46-116); ANION GAP 5 mmol/L (5-15); ASPARTATE AMINO TRANSFERASE 35 U/L (15-37); BILIRUBIN,TOTAL 0.8 MG/DL (0.2-1.0); BLOOD UREA NITROGEN 18 mg/dL (7-18); CALCIUM 8.4 MG/DL (8.5-10.1); CARBON DIOXIDE 27 MMOL/L (21-32); CHLORIDE 105 MMOL/L (98-107); CREATININE 1.1 MG/DL (0.55-1.30); PHOSPHORUS 3.6 MG/DL (2.5-4.9); POTASSIUM 3.4 MMOL/L (3.5-5.1); SODIUM 137 MMOL/L (136-145)
[2017-07-18 08:14] VITALS: BP 108/62
[2017-07-18 08:25] VITALS: BP 108/62
[2017-07-18] MEDS ORDERED: Tubing IV Secondary IV ONE (08:53)
[2017-07-18] MEDS ORDERED: Lisinopril 20mg tab ORAL SCH (09:00)
[2017-07-18] MEDS: Heparin 5000 units/ml inj SUBQ SCH ×2 (09:00→20:20)
[2017-07-18] MEDS: Azithromycin 250mg tab ORAL SCH (09:43)
[2017-07-18] MEDS: Promethazine/Codeine 5ml UD ORAL PRN ×2 (09:52→18:01)
--- NOTE | 2017-07-18 11:38 | Infectious Diseases Prog Note ---
Assessment/Plan Assessment/Plan A: Fever, SP CAP Cough , improving Shortness of breath: Improving Rapid influenza test negative. Pancytopenia HTN Hypothyroidism. HLD P: Cont pt on IV Cefepime and Zithro d# 4 / 5 Monitor CBC Monitor BMP Monitor Cxray Monitor culture (blood, sputum, and urine). HIV, Hep panel Subjective Allergies: Coded Allergies: No Known Allergies (Unverified , 11/09/12) Subjective afebrile cough has improved Objective Vital Signs Last 24 Hour Vital Signs Date Time Temp Pulse Resp B/P (MAP) Pulse Ox O2 Delivery O2 Flow Rate FiO2 07/18/17 09:00 102/62 07/18/17 08:25 98.8 70 18 108/62 70 Room Air 98.8 07/18/17 07:29 Room Air 21 07/18/17 05:27 98.6 60 16 111/65 94 Room Air 98.6 07/17/17 20:00 99.0 68 18 131/77 93 Room Air 99.0 07/17/17 19:14 77 20 Room Air 21 07/17/17 16:44 98.2 68 18 135/73 96 Room Air 98.2 07/17/17 12:00 99.9 64 18 128/69 97 Room Air 99.9 07/17/17 11:42 69 Height (Feet): 5 Height (Inches): 2.00 Weight (Pounds): 120 HEENT: anicteric Respiratory/Chest: no accessory muscle use Cardiovascular: no gallop/murmur Abdomen: non distended Microbiology Date/Time Source Procedure Growth Status 07/16/17 10:09 Blood Blood Culture - Preliminary NO GROWTH AFTER 24 HOURS Resulted 07/16/17 09:24 Blood Blood Culture - Preliminary NO GROWTH AFTER 24 HOURS Resulted 07/17/17 14:00 Sputum Gram Stain - Final Resulted 07/17/17 14:00 Sputum Sputum Culture Pending Resulted 07/16/17 09:24 Nasal Nares Influenza Types A,B Antigen (DEVANG) - Final Complete 07/16/17 11:30 Urine,Clean Catch Urine Culture - Preliminary Mixed Urogenital Contaminants Resulted Laboratory Tests Test 07/18/17 05:40 White Blood Count 3.3 K/UL (4.8-10.8) L Red Blood Count 4.49 M/UL (4.20-5.40) Hemoglobin 13.1 G/DL (12.0-16.0) Hematocrit 36.5 % (37.0-47.0) L Mean Corpuscular Volume 81 FL (80-99) Mean Corpuscular Hemoglobin 29.3 PG (27.0-31.0) Mean Corpuscular Hemoglobin Concent 36.0 G/DL (32.0-36.0) Red Cell Distribution Width 12.5 % (11.6-14.8) Platelet Count 97 K/UL (150-450) L Mean Platelet Volume 7.2 FL (6.5-10.1) Neutrophils (%) (Auto) % (45.0-75.0) Lymphocytes (%) (Auto) % (20.0-45.0) Monocytes (%) (Auto) % (1.0-10.0) Eosinophils (%) (Auto) % (0.0-3.0) Basophils (%) (Auto) % (0.0-2.0) Differential Total Cells Counted 100 Neutrophils % (Manual) 56 % (45-75) Lymphocytes % (Manual) 27 % (20-45) Monocytes % (Manual) 14 % (1-10) H Eosinophils % (Manual) 0 % (0-3) Basophils % (Manual) 0 % (0-2) Band Neutrophils 3 % (0-8) Platelet Estimate Decreased L Platelet Morphology Normal Red Blood Cell Morphology Normal Erythrocyte Sedimentation Rate 21 MM/HR (0-30) Sodium Level 137 MMOL/L (136-145) Potassium Level 3.4 MMOL/L (3.5-5.1) L Chloride Level 105 MMOL/L (98-107) Carbon Dioxide Level 27 MMOL/L (21-32) Anion Gap 5 mmol/L (5-15) Blood Urea Nitrogen 18 mg/dL (7-18) Creatinine 1.1 MG/DL (0.55-1.30) Estimat Glomerular Filtration Rate mL/min (>60) Glucose Level 95 MG/DL (74-106) Calcium Level 8.4 MG/DL (8.5-10.1) L Phosphorus Level 3.6 MG/DL (2.5-4.9) Magnesium Level 2.0 MG/DL (1.8-2.4) Total Bilirubin 0.8 MG/DL (0.2-1.0) Aspartate Amino Transf (AST/SGOT) 35 U/L (15-37) Alanine Aminotransferase (ALT/SGPT) 27 U/L (12-78) Alkaline Phosphatase 48 U/L (46-116) Total Protein 6.6 G/DL (6.4-8.2) Albumin 3.1 G/DL (3.4-5.0) L Globulin 3.5 g/dL Albumin/Globulin Ratio 0.9 (1.0-2.7) L Current Medications Medications (Trade) Dose Ordered Sig/Alisson Route PRN Reason Start Time Stop Time Status Last Admin Dose Admin Acetaminophen (Tylenol) 650 mg Q4H PRN ORAL fever 07/17/17 16:45 08/15/17 12:44 Al Hydroxide/Mg Hydroxide (Mylanta II) 30 ml Q6H PRN ORAL dyspepsia 07/17/17 16:45 08/15/17 16:44 Albuterol/ Ipratropium (Albuterol/ Ipratropium) 3 ml Q4H PRN HHN Shortness of Breath 07/17/17 16:45 07/21/17 12:44 Azithromycin (Zithromax) 500 mg DAILY ORAL 07/18/17 09:00 07/24/17 23:59 07/18/17 09:43 Cefepime HCl 1 gm/ Sodium Chloride 55 ml @ 110 mls/hr Q24H IV 07/17/17 18:00 07/23/17 23:59 07/17/17 17:50 Cetylpyridinium Chloride (Cepacol) 1 lozg EVERY 2 HOURS PRN KIM For THROAT Pain 07/17/17 16:45 08/16/17 16:44 07/18/17 09:52 Clonidine HCl (Catapres Tab) 0.1 mg Q4H PRN ORAL for sbp more than 160 07/17/17 17:00 08/15/17 12:59 Heparin Sodium (Porcine) (Heparin 5000 units/ml) 5,000 units EVERY 12 HOURS SUBQ 07/17/17 21:00 08/15/17 20:59 Levothyroxine Sodium (Synthroid) 25 mcg ACBREAKFAST ORAL 07/18/17 06:30 08/16/17 06:29 07/18/17 06:19 Lisinopril (Prinivil) 40 mg DAILY ORAL 07/18/17 09:00 08/15/17 12:59 Nitroglycerin (Ntg) 0.4 mg Q5M PRN SL Prn Chest Pain 07/17/17 16:30 08/15/17 12:44 Ondansetron HCl (Zofran) 4 mg Q6H PRN IVP Nausea & Vomiting 07/17/17 16:48 08/15/17 16:47 Polyethylene Glycol (Miralax) 17 gm DAILYPRN PRN ORAL Constipation 07/17/17 16:48 08/16/17 16:47 Promethazine HCl/ Codeine (Phenergan with Codeine) 5 ml Q4H PRN ORAL For Cough 07/17/17 16:45 08/15/17 12:44 07/18/17 09:52 Temazepam (Restoril) 15 mg HSPRN PRN ORAL Insomnia 07/17/17 16:48 07/24/17 16:47 Uziel Ansari MD Jul 18, 2017 11:38
[2017-07-18 12:00] VITALS: BP 112/62
[2017-07-18] MEDS ORDERED: Sennosides 8.6mg ORAL SCH (14:00)
--- NOTE | 2017-07-18 14:35 | Pulmonology Progress Note ---
Assessment/Plan Problems: (1) Pneumonia (2) Fever (3) Pleural effusion, left (4) Hypothyroidism (5) Hypertension Assessment/Plan improving no sputum yet, dulture pending continue abx, on Cefepime and Zithromx iv check cultures monitor BP dvt prophylaxis repeat cxr in am Subjective ROS Limited/Unobtainable: No Interval Events: still coughing Allergies: Coded Allergies: No Known Allergies (Unverified , 11/09/12) Objective Last 24 Hour Vital Signs Date Time Temp Pulse Resp B/P (MAP) Pulse Ox O2 Delivery O2 Flow Rate FiO2 07/18/17 12:00 98.1 60 18 112/62 94 Room Air 98.1 07/18/17 09:00 102/62 07/18/17 08:25 98.8 70 18 108/62 70 Room Air 98.8 07/18/17 07:29 Room Air 21 07/18/17 05:27 98.6 60 16 111/65 94 Room Air 98.6 07/17/17 20:00 99.0 68 18 131/77 93 Room Air 99.0 07/17/17 19:14 77 20 Room Air 21 07/17/17 16:44 98.2 68 18 135/73 96 Room Air 98.2 Intake and Output 07/17/17 07/18/17 19:00 07:00 Intake Total 527 ml 105 ml Balance 527 ml 105 ml Intake Oral 472 ml 50 ml IV Total 55 ml 55 ml # Voids 2 1 Objective General Appearance: WD/WN Lines, tubes and drains: peripheral HEENT: normocephalic, atraumatic Neck: non-tender, normal alignment Respiratory/Chest: rhonchi - left, rhonchi - right Breasts: no masses Cardiovascular/Chest: normal peripheral pulses Abdomen: normal bowel sounds, soft Genitourinary/Rectal: normal genital exam, normal rectal exam Skin Exam: normal pigmentation 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 Microbiology Date/Time Source Procedure Growth Status 07/16/17 10:09 Blood Blood Culture - Preliminary NO GROWTH AFTER 24 HOURS Resulted 07/16/17 09:24 Blood Blood Culture - Preliminary NO GROWTH AFTER 24 HOURS Resulted 07/17/17 14:00 Sputum Gram Stain - Final Resulted 07/17/17 14:00 Sputum Sputum Culture Pending Resulted 07/16/17 09:24 Nasal Nares Influenza Types A,B Antigen (DEVANG) - Final Complete 07/16/17 11:30 Urine,Clean Catch Urine Culture - Preliminary Mixed Urogenital Contaminants Resulted Laboratory Tests 07/18/17 05:40: White Blood Count 3.3L, Red Blood Count 4.49, Hemoglobin 13.1, Hematocrit 36.5L , Mean Corpuscular Volume 81, Mean Corpuscular Hemoglobin 29.3, Mean Corpuscular Hemoglobin Concent 36.0, Red Cell Distribution Width 12.5, Platelet Count 97L, Mean Platelet Volume 7.2, Neutrophils (%) (Auto) , Lymphocytes (%) ( Auto) , Monocytes (%) (Auto) , Eosinophils (%) (Auto) , Basophils (%) (Auto) , Differential Total Cells Counted 100, Neutrophils % (Manual) 56, Lymphocytes % ( Manual) 27, Monocytes % (Manual) 14H, Eosinophils % (Manual) 0, Basophils % ( Manual) 0, Band Neutrophils 3, Platelet Estimate DecreasedL, Platelet Morphology Normal, Red Blood Cell Morphology Normal, Erythrocyte Sedimentation Rate 21, Sodium Level 137, Potassium Level 3.4L, Chloride Level 105, Carbon Dioxide Level 27, Anion Gap 5, Blood Urea Nitrogen 18, Creatinine 1.1, Estimat Glomerular Filtration Rate , Glucose Level 95, Calcium Level 8.4L, Phosphorus Level 3.6, Magnesium Level 2.0, Total Bilirubin 0.8, Aspartate Amino Transf (AST /SGOT) 35, Alanine Aminotransferase (ALT/SGPT) 27, Alkaline Phosphatase 48, Total Protein 6.6, Albumin 3.1L, Globulin 3.5, Albumin/Globulin Ratio 0.9L, Hepatitis A IgM Antibody [Pending], Hepatitis B Surface Antigen [Pending], Hepatitis B Core IgM Antibody [Pending], Hepatitis C Antibody [Pending], HIV (1& 2) Antibody Rapid Negative Current Medications Medications (Trade) Dose Ordered Sig/Alisson Route PRN Reason Start Time Stop Time Status Last Admin Dose Admin Acetaminophen (Tylenol) 650 mg Q4H PRN ORAL fever 07/17/17 16:45 08/15/17 12:44 Al Hydroxide/Mg Hydroxide (Mylanta II) 30 ml Q6H PRN ORAL dyspepsia 07/17/17 16:45 08/15/17 16:44 Albuterol/ Ipratropium (Albuterol/ Ipratropium) 3 ml Q4H PRN HHN Shortness of Breath 07/17/17 16:45 07/21/17 12:44 Azithromycin (Zithromax) 500 mg DAILY ORAL 07/18/17 09:00 07/24/17 23:59 07/18/17 09:43 Cefepime HCl 1 gm/ Sodium Chloride 55 ml @ 110 mls/hr Q24H IV 07/17/17 18:00 07/23/17 23:59 07/17/17 17:50 Cetylpyridinium Chloride (Cepacol) 1 lozg EVERY 2 HOURS PRN KIM For THROAT Pain 07/17/17 16:45 08/16/17 16:44 07/18/17 09:52 Clonidine HCl (Catapres Tab) 0.1 mg Q4H PRN ORAL for sbp more than 160 07/17/17 17:00 08/15/17 12:59 Docusate Sodium (Colace) 100 mg THREE TIMES A DAY ORAL 07/18/17 14:00 08/17/17 13:59 Heparin Sodium (Porcine) (Heparin 5000 units/ml) 5,000 units EVERY 12 HOURS SUBQ 07/18/17 21:00 08/15/17 20:59 Levothyroxine Sodium (Synthroid) 25 mcg ACBREAKFAST ORAL 07/18/17 06:30 08/16/17 06:29 07/18/17 06:19 Lisinopril (Prinivil) 40 mg DAILY ORAL 07/19/17 09:00 08/15/17 12:59 Mineral Oil (Fleet's Mineral Oil Enema) 133 ml EVERY OTHER DAY RECTAL 07/20/17 09:00 08/19/17 08:59 Nitroglycerin (Ntg) 0.4 mg Q5M PRN SL Prn Chest Pain 07/17/17 16:30 08/15/17 12:44 Ondansetron HCl (Zofran) 4 mg Q6H PRN IVP Nausea & Vomiting 07/17/17 16:48 08/15/17 16:47 Polyethylene Glycol (Miralax) 17 gm BEDTIME ORAL 07/18/17 21:00 08/17/17 20:59 Polyethylene Glycol (Miralax) 17 gm DAILYPRN PRN ORAL Constipation 07/17/17 16:48 08/16/17 16:47 Promethazine HCl/ Codeine (Phenergan with Codeine) 5 ml Q4H PRN ORAL For Cough 07/17/17 16:45 08/15/17 12:44 07/18/17 09:52 Sennosides (Senokot) 8.6 tab DAILY ORAL 07/18/17 14:00 08/17/17 13:59 Temazepam (Restoril) 15 mg HSPRN PRN ORAL Insomnia 07/17/17 16:48 07/24/17 16:47 Dottie Flores MD Jul 18, 2017 14:35
[2017-07-18] MEDS: Docusate 100mg cap ORAL SCH ×2 (14:50→18:00)
--- NOTE | 2017-07-18 15:24 | Diagnostic Imaging Report ---
Indications: Dysphagia Technique: Patient ingested multiple substances under the supervision of speech pathology. Video fluoroscopic recording performed. Total fluoroscopy time 219 seconds. Total dose area product 0.3680 mGycm2 Comparison: none Findings: Multiple episodes of penetration of thin liquid barium observed. No ye aspiration. With nectar thick and honey thick liquid barium barium puree, no aspiration or penetration demonstrated. There is some delay in initiation of deglutition. Impression: Positive for penetration of thin liquid barium Please refer to speech pathology report for more detailed analysis
[2017-07-18 16:00] VITALS: BP 102/66
--- NOTE | 2017-07-18 17:51 | Internal Med Progress Note ---
Subjective Date of Service: Jul 18, 2017 Physician Name Coleman,Salud Attending Physician Chevy De La Rosa MD Current Medications Medications (Trade) Dose Ordered Sig/Alisson Route PRN Reason Start Time Stop Time Status Last Admin Dose Admin Acetaminophen (Tylenol) 650 mg Q4H PRN ORAL fever 07/17/17 16:45 08/15/17 12:44 Al Hydroxide/Mg Hydroxide (Mylanta II) 30 ml Q6H PRN ORAL dyspepsia 07/17/17 16:45 08/15/17 16:44 Albuterol/ Ipratropium (Albuterol/ Ipratropium) 3 ml Q4H PRN HHN Shortness of Breath 07/17/17 16:45 07/21/17 12:44 Azithromycin (Zithromax) 500 mg DAILY ORAL 07/18/17 09:00 07/24/17 23:59 07/18/17 09:43 Cefepime HCl 1 gm/ Sodium Chloride 55 ml @ 110 mls/hr Q24H IV 07/17/17 18:00 07/23/17 23:59 07/17/17 17:50 Cetylpyridinium Chloride (Cepacol) 1 lozg EVERY 2 HOURS PRN KIM For THROAT Pain 07/17/17 16:45 08/16/17 16:44 07/18/17 09:52 Clonidine HCl (Catapres Tab) 0.1 mg Q4H PRN ORAL for sbp more than 160 07/17/17 17:00 08/15/17 12:59 Docusate Sodium (Colace) 100 mg THREE TIMES A DAY ORAL 07/18/17 14:00 08/17/17 13:59 07/18/17 14:50 Heparin Sodium (Porcine) (Heparin 5000 units/ml) 5,000 units EVERY 12 HOURS SUBQ 07/18/17 21:00 08/15/17 20:59 Levothyroxine Sodium (Synthroid) 25 mcg ACBREAKFAST ORAL 07/18/17 06:30 08/16/17 06:29 07/18/17 06:19 Lisinopril (Prinivil) 40 mg DAILY ORAL 07/19/17 09:00 08/15/17 12:59 Mineral Oil (Fleet's Mineral Oil Enema) 133 ml EVERY OTHER DAY RECTAL 07/20/17 09:00 08/19/17 08:59 Nitroglycerin (Ntg) 0.4 mg Q5M PRN SL Prn Chest Pain 07/17/17 16:30 08/15/17 12:44 Ondansetron HCl (Zofran) 4 mg Q6H PRN IVP Nausea & Vomiting 07/17/17 16:48 08/15/17 16:47 Polyethylene Glycol (Miralax) 17 gm BEDTIME ORAL 07/18/17 21:00 08/17/17 20:59 Polyethylene Glycol (Miralax) 17 gm DAILYPRN PRN ORAL Constipation 07/17/17 16:48 08/16/17 16:47 Promethazine HCl/ Codeine (Phenergan with Codeine) 5 ml Q4H PRN ORAL For Cough 07/17/17 16:45 08/15/17 12:44 07/18/17 09:52 Sennosides (Senokot) 8.6 tab DAILY ORAL 07/18/17 14:00 08/17/17 13:59 07/18/17 14:49 Temazepam (Restoril) 15 mg HSPRN PRN ORAL Insomnia 07/17/17 16:48 07/24/17 16:47 Allergies: Coded Allergies: No Known Allergies (Unverified , 11/09/12) ROS Limited/Unobtainable: No Constitutional: Reports: no symptoms HEENT: Reports: no symptoms Cardiovascular: Reports: no symptoms Respiratory: Reports: cough Gastrointestinal/Abdominal: Reports: no symptoms Genitourinary: Reports: no symptoms Neurologic/Psychiatric: Reports: no symptoms Subjective 87 YO F admitted with cough and pleuritic chest pain. Now bronchitis. Cover for Int Melchor-Dr De La Rosa Objective Last Vital Signs Date Time Temp Pulse Resp B/P (MAP) Pulse Ox O2 Delivery O2 Flow Rate FiO2 07/18/17 16:00 98.0 63 20 102/66 93 98.0 07/18/17 12:00 Room Air 07/18/17 07:29 21 Laboratory Tests Test 07/18/17 05:40 White Blood Count 3.3 K/UL (4.8-10.8) L Red Blood Count 4.49 M/UL (4.20-5.40) Hemoglobin 13.1 G/DL (12.0-16.0) Hematocrit 36.5 % (37.0-47.0) L Mean Corpuscular Volume 81 FL (80-99) Mean Corpuscular Hemoglobin 29.3 PG (27.0-31.0) Mean Corpuscular Hemoglobin Concent 36.0 G/DL (32.0-36.0) Red Cell Distribution Width 12.5 % (11.6-14.8) Platelet Count 97 K/UL (150-450) L Mean Platelet Volume 7.2 FL (6.5-10.1) Neutrophils (%) (Auto) % (45.0-75.0) Lymphocytes (%) (Auto) % (20.0-45.0) Monocytes (%) (Auto) % (1.0-10.0) Eosinophils (%) (Auto) % (0.0-3.0) Basophils (%) (Auto) % (0.0-2.0) Differential Total Cells Counted 100 Neutrophils % (Manual) 56 % (45-75) Lymphocytes % (Manual) 27 % (20-45) Monocytes % (Manual) 14 % (1-10) H Eosinophils % (Manual) 0 % (0-3) Basophils % (Manual) 0 % (0-2) Band Neutrophils 3 % (0-8) Platelet Estimate Decreased L Platelet Morphology Normal Red Blood Cell Morphology Normal Erythrocyte Sedimentation Rate 21 MM/HR (0-30) Sodium Level 137 MMOL/L (136-145) Potassium Level 3.4 MMOL/L (3.5-5.1) L Chloride Level 105 MMOL/L (98-107) Carbon Dioxide Level 27 MMOL/L (21-32) Anion Gap 5 mmol/L (5-15) Blood Urea Nitrogen 18 mg/dL (7-18) Creatinine 1.1 MG/DL (0.55-1.30) Estimat Glomerular Filtration Rate mL/min (>60) Glucose Level 95 MG/DL (74-106) Calcium Level 8.4 MG/DL (8.5-10.1) L Phosphorus Level 3.6 MG/DL (2.5-4.9) Magnesium Level 2.0 MG/DL (1.8-2.4) Total Bilirubin 0.8 MG/DL (0.2-1.0) Aspartate Amino Transf (AST/SGOT) 35 U/L (15-37) Alanine Aminotransferase (ALT/SGPT) 27 U/L (12-78) Alkaline Phosphatase 48 U/L (46-116) Total Protein 6.6 G/DL (6.4-8.2) Albumin 3.1 G/DL (3.4-5.0) L Globulin 3.5 g/dL Albumin/Globulin Ratio 0.9 (1.0-2.7) L Hepatitis A IgM Antibody Pending Hepatitis B Surface Antigen Pending Hepatitis B Core IgM Antibody Pending Hepatitis C Antibody Pending HIV (1&2) Antibody Rapid Negative (NEGATIVE) Microbiology Date/Time Source Procedure Growth Status 07/16/17 10:09 Blood Blood Culture - Preliminary NO GROWTH AFTER 24 HOURS Resulted 07/16/17 09:24 Blood Blood Culture - Preliminary NO GROWTH AFTER 24 HOURS Resulted 07/17/17 14:00 Sputum Gram Stain - Final Resulted 07/17/17 14:00 Sputum Sputum Culture Pending Resulted 07/16/17 09:24 Nasal Nares Influenza Types A,B Antigen (DEVANG) - Final Complete 07/16/17 11:30 Urine,Clean Catch Urine Culture - Preliminary Mixed Urogenital Contaminants Resulted Intake and Output 07/17/17 07/18/17 19:00 07:00 Intake Total 527 ml 105 ml Balance 527 ml 105 ml Intake Oral 472 ml 50 ml IV Total 55 ml 55 ml # Voids 2 1 Objective General Appearance: WD/WN, no apparent distress, alert EENT: PERRL/EOMI, normal ENT inspection, TMs normal Neck: non-tender, normal alignment, supple, normal inspection Cardiovascular: normal peripheral pulses, normal rate, regular rhythm, no gallop/murmur, no JVD Respiratory/Chest: chest wall non-tender, no respiratory distress, no accessory muscle use, crackles/rales, rhonchi - bilaterally Abdomen: normal bowel sounds, non tender, soft, no organomegaly, no mass Extremities: normal range of motion, non-tender Skin: normal pigmentation, warm/dry Assessment/Plan Problem List: (1) Hypercholesteremia (2) Chest pain, pleuritic (3) Fever (4) Hypothyroidism Assessment & Plan: Continue levoxyl (5) Hypertension Assessment & Plan: Continue lisinopril and clonidine (6) Bronchitis Assessment & Plan: Continue cefepime Status: SALUD Nam Jul 18, 2017 17:51
[2017-07-18] MEDS: Cefepime HCl 1 GM in NS 55 ML IV SCH (18:00)
[2017-07-18 20:00] VITALS: BP 122/67
[2017-07-18] MEDS ORDERED: Miralax 17gm pkt ORAL SCH (21:00)
[2017-07-19] VITALS: BP 142/73
[2017-07-19 04:00] VITALS: BP 116/72
[2017-07-19] MEDS: Levothyroxine 25mcg tab ORAL SCH (06:11)
[2017-07-19 08:08] VITALS: BP 105/54
[2017-07-19] MEDS: Azithromycin 250mg tab ORAL SCH (08:19)
[2017-07-19] MEDS: Docusate 100mg cap ORAL SCH ×2 (08:19→13:00)
[2017-07-19] MEDS: Sennosides 8.6mg ORAL SCH ×2 (08:25→08:37)
[2017-07-19 08:30] LABS: BASOPHILS % (AUTO) 1.5 % (0.0-2.0); EOSINOPHILS % (AUTO) 3.7 % (0.0-3.0); HEMATOCRIT 39.8 % (37.0-47.0); HEMOGLOBIN 13.4 G/DL (12.0-16.0); LYMPHOCYTES % (AUTO) 21.1 % (20.0-45.0); MEAN CORPUSCULAR VOLUME 82 FL (80-99); MONOCYTES % (AUTO) 8.4 % (1.0-10.0); NEUTROPHILS % (AUTO) 65.2 % (45.0-75.0); PLATELET COUNT 124 K/UL (150-450); RED BLOOD COUNT 4.84 M/UL (4.20-5.40); RED CELL DISTRIBUTION WIDTH 12.5 % (11.6-14.8); WHITE BLOOD COUNT 4.6 K/UL (4.8-10.8)
[2017-07-19] MEDS: Heparin 5000 units/ml inj SUBQ SCH ×2 (08:37→08:53)
[2017-07-19 08:47] LABS: ALANINE AMINOTRANSFERASE 26 U/L (12-78); ALBUMIN 3.3 G/DL (3.4-5.0); ALBUMIN/GLOBULIN RATIO 0.9 (1.0-2.7); ALKALINE PHOSPHATASE 53 U/L (46-116); ANION GAP 9 mmol/L (5-15); ASPARTATE AMINO TRANSFERASE 35 U/L (15-37); BLOOD UREA NITROGEN 27 mg/dL (7-18); CALCIUM 8.3 MG/DL (8.5-10.1); CARBON DIOXIDE 27 MMOL/L (21-32); CHLORIDE 104 MMOL/L (98-107); CREATININE 1.1 MG/DL (0.55-1.30); PHOSPHORUS 3.7 MG/DL (2.5-4.9); POTASSIUM 3.6 MMOL/L (3.5-5.1); SODIUM 140 MMOL/L (136-145)
[2017-07-19] MEDS ORDERED: Lisinopril 20mg tab ORAL SCH (09:00)
--- NOTE | 2017-07-19 09:18 | Diagnostic Imaging Report ---
Indication: Cough Dyspnea Technique: One view of the chest Comparison: 07/16/2017 Findings: Elevated left hemidiaphragm is again noted. Contrast from recent swallowing study is seen within the colon. The lungs and pleural spaces are clear. Heart size is normal. Impression: No acute process. Findings as noted
[2017-07-19] MEDS ORDERED: ZITHROMAX250 MG ORAL (10:57)
--- NOTE | 2017-07-19 11:03 | Internal Med Progress Note ---
Subjective Date of Service: Jul 19, 2017 Physician Name Coleman,Salud Attending Physician Chevy De La Rosa MD Current Medications Medications (Trade) Dose Ordered Sig/Alisson Route PRN Reason Start Time Stop Time Status Last Admin Dose Admin Acetaminophen (Tylenol) 650 mg Q4H PRN ORAL fever 07/17/17 16:45 08/15/17 12:44 Al Hydroxide/Mg Hydroxide (Mylanta II) 30 ml Q6H PRN ORAL dyspepsia 07/17/17 16:45 08/15/17 16:44 Albuterol/ Ipratropium (Albuterol/ Ipratropium) 3 ml Q4H PRN HHN Shortness of Breath 07/17/17 16:45 07/21/17 12:44 Azithromycin (Zithromax) 500 mg DAILY ORAL 07/18/17 09:00 07/24/17 23:59 07/19/17 08:19 Cefepime HCl 1 gm/ Sodium Chloride 55 ml @ 110 mls/hr Q24H IV 07/17/17 18:00 07/23/17 23:59 07/18/17 18:00 Cetylpyridinium Chloride (Cepacol) 1 lozg EVERY 2 HOURS PRN KIM For THROAT Pain 07/17/17 16:45 08/16/17 16:44 07/18/17 09:52 Clonidine HCl (Catapres Tab) 0.1 mg Q4H PRN ORAL for sbp more than 160 07/17/17 17:00 08/15/17 12:59 Docusate Sodium (Colace) 100 mg THREE TIMES A DAY ORAL 07/18/17 14:00 08/17/17 13:59 07/19/17 08:19 Heparin Sodium (Porcine) (Heparin 5000 units/ml) 5,000 units EVERY 12 HOURS SUBQ 07/18/17 21:00 08/15/17 20:59 07/19/17 08:53 Levothyroxine Sodium (Synthroid) 25 mcg ACBREAKFAST ORAL 07/18/17 06:30 08/16/17 06:29 07/19/17 06:11 Lisinopril (Prinivil) 40 mg DAILY ORAL 07/19/17 09:00 08/15/17 12:59 Mineral Oil (Fleet's Mineral Oil Enema) 133 ml EVERY OTHER DAY RECTAL 07/20/17 09:00 08/19/17 08:59 Nitroglycerin (Ntg) 0.4 mg Q5M PRN SL Prn Chest Pain 07/17/17 16:30 08/15/17 12:44 Ondansetron HCl (Zofran) 4 mg Q6H PRN IVP Nausea & Vomiting 07/17/17 16:48 08/15/17 16:47 Polyethylene Glycol (Miralax) 17 gm BEDTIME ORAL 07/18/17 21:00 08/17/17 20:59 07/18/17 20:35 Polyethylene Glycol (Miralax) 17 gm DAILYPRN PRN ORAL Constipation 07/17/17 16:48 08/16/17 16:47 Promethazine HCl/ Codeine (Phenergan with Codeine) 5 ml Q4H PRN ORAL For Cough 07/17/17 16:45 08/15/17 12:44 07/18/17 18:01 Sennosides (Senokot) 1 tab DAILY ORAL 07/19/17 09:00 08/18/17 08:59 Temazepam (Restoril) 15 mg HSPRN PRN ORAL Insomnia 07/17/17 16:48 07/24/17 16:47 Allergies: Coded Allergies: No Known Allergies (Unverified , 11/09/12) ROS Limited/Unobtainable: No Constitutional: Reports: no symptoms HEENT: Reports: no symptoms Cardiovascular: Reports: no symptoms Respiratory: Reports: cough Gastrointestinal/Abdominal: Reports: no symptoms Genitourinary: Reports: no symptoms Neurologic/Psychiatric: Reports: no symptoms Subjective 87 YO F admitted with cough and pleuritic chest pain. Now bronchitis. Cover for Int Melchor-Dr De La Rosa Objective Last Vital Signs Date Time Temp Pulse Resp B/P (MAP) Pulse Ox O2 Delivery O2 Flow Rate FiO2 07/19/17 08:38 105/54 07/19/17 08:08 98.2 69 19 96 Room Air 98.2 07/19/17 07:40 21 Laboratory Tests Test 07/19/17 08:00 White Blood Count 4.6 K/UL (4.8-10.8) L Red Blood Count 4.84 M/UL (4.20-5.40) Hemoglobin 13.4 G/DL (12.0-16.0) Hematocrit 39.8 % (37.0-47.0) Mean Corpuscular Volume 82 FL (80-99) Mean Corpuscular Hemoglobin 27.6 PG (27.0-31.0) Mean Corpuscular Hemoglobin Concent 33.6 G/DL (32.0-36.0) Red Cell Distribution Width 12.5 % (11.6-14.8) Platelet Count 124 K/UL (150-450) L Mean Platelet Volume 6.6 FL (6.5-10.1) Neutrophils (%) (Auto) 65.2 % (45.0-75.0) Lymphocytes (%) (Auto) 21.1 % (20.0-45.0) Monocytes (%) (Auto) 8.4 % (1.0-10.0) Eosinophils (%) (Auto) 3.7 % (0.0-3.0) H Basophils (%) (Auto) 1.5 % (0.0-2.0) Sodium Level 140 MMOL/L (136-145) Potassium Level 3.6 MMOL/L (3.5-5.1) Chloride Level 104 MMOL/L (98-107) Carbon Dioxide Level 27 MMOL/L (21-32) Anion Gap 9 mmol/L (5-15) Blood Urea Nitrogen 27 mg/dL (7-18) H Creatinine 1.1 MG/DL (0.55-1.30) Estimat Glomerular Filtration Rate mL/min (>60) Glucose Level 125 MG/DL (74-106) H Calcium Level 8.3 MG/DL (8.5-10.1) L Phosphorus Level 3.7 MG/DL (2.5-4.9) Magnesium Level 2.1 MG/DL (1.8-2.4) Total Bilirubin 1.0 MG/DL (0.2-1.0) Aspartate Amino Transf (AST/SGOT) 35 U/L (15-37) Alanine Aminotransferase (ALT/SGPT) 26 U/L (12-78) Alkaline Phosphatase 53 U/L (46-116) Total Protein 7.1 G/DL (6.4-8.2) Albumin 3.3 G/DL (3.4-5.0) L Globulin 3.8 g/dL Albumin/Globulin Ratio 0.9 (1.0-2.7) L Microbiology Date/Time Source Procedure Growth Status 07/17/17 14:00 Sputum Gram Stain - Final Complete 07/17/17 14:00 Sputum Sputum Culture - Final NORMAL UPPER RESPIRATORY RAYMUNDO PRESENT Complete 07/16/17 11:30 Urine,Clean Catch Urine Culture - Final Mixed Urogenital Contaminants Complete Intake and Output 07/18/17 07/19/17 19:00 07:00 Intake Total 450 ml 360 ml Balance 450 ml 360 ml Intake Oral 450 ml 360 ml # Voids 3 2 # Bowel Movements 1 Objective General Appearance: WD/WN, no apparent distress, alert EENT: PERRL/EOMI, normal ENT inspection, TMs normal Neck: non-tender, normal alignment, supple, normal inspection Cardiovascular: normal peripheral pulses, normal rate, regular rhythm, no gallop/murmur, no JVD Respiratory/Chest: chest wall non-tender, no respiratory distress, no accessory muscle use, crackles/rales, rhonchi - bilaterally Abdomen: normal bowel sounds, non tender, soft, no organomegaly, no mass Extremities: normal range of motion, non-tender Skin: normal pigmentation, warm/dry Assessment/Plan Problem List: (1) Hypercholesteremia Assessment & Plan: Continue lipitor (2) Chest pain, pleuritic (3) Fever (4) Hypothyroidism Assessment & Plan: Continue levoxyl (5) Hypertension Assessment & Plan: Continue lisinopril and clonidine (6) Bronchitis Assessment & Plan: Continue cefepime and azithromycin per ID Status: SALUD Nam Jul 19, 2017 11:03
--- NOTE | 2017-07-19 11:24 | Infectious Diseases Prog Note ---
Assessment/Plan Assessment/Plan A: Fever, SP CAP/ Bornchitis Scx: NL larisa 07/19 Cxray : [facility] Cough , improving Shortness of breath: SP Rapid influenza test negative. Pancytopenia HIV neg Hep panel : Neg HTN Hypothyroidism. HLD P: DC Cefepime and Zithro d# 5 / 5 Monitor CBC Monitor BMP Monitor Cxray Monitor culture (blood,). Subjective Allergies: Coded Allergies: No Known Allergies (Unverified , 11/09/12) Subjective afebrile cough has improved Objective Vital Signs Last 24 Hour Vital Signs Date Time Temp Pulse Resp B/P (MAP) Pulse Ox O2 Delivery O2 Flow Rate FiO2 07/19/17 08:38 105/54 07/19/17 08:08 98.2 69 19 105/54 96 Room Air 98.2 07/19/17 07:40 70 18 Room Air 21 07/19/17 04:00 98.5 64 18 116/72 93 Room Air 98.5 07/19/17 00:00 97.7 61 18 142/73 94 Room Air 97.7 07/18/17 20:03 61 18 Room Air 21 07/18/17 20:00 98.3 61 20 122/67 94 Room Air 98.3 07/18/17 16:00 98.0 63 20 102/66 93 98.0 07/18/17 12:00 98.1 60 18 112/62 94 Room Air 98.1 Height (Feet): 5 Height (Inches): 2.00 Weight (Pounds): 120 HEENT: anicteric Respiratory/Chest: no accessory muscle use Cardiovascular: regularly irregular Abdomen: no organomegaly Microbiology Date/Time Source Procedure Growth Status 07/17/17 14:00 Sputum Gram Stain - Final Complete 07/17/17 14:00 Sputum Sputum Culture - Final NORMAL UPPER RESPIRATORY LARISA PRESENT Complete 07/16/17 11:30 Urine,Clean Catch Urine Culture - Final Mixed Urogenital Contaminants Complete Laboratory Tests Test 07/19/17 08:00 White Blood Count 4.6 K/UL (4.8-10.8) L Red Blood Count 4.84 M/UL (4.20-5.40) Hemoglobin 13.4 G/DL (12.0-16.0) Hematocrit 39.8 % (37.0-47.0) Mean Corpuscular Volume 82 FL (80-99) Mean Corpuscular Hemoglobin 27.6 PG (27.0-31.0) Mean Corpuscular Hemoglobin Concent 33.6 G/DL (32.0-36.0) Red Cell Distribution Width 12.5 % (11.6-14.8) Platelet Count 124 K/UL (150-450) L Mean Platelet Volume 6.6 FL (6.5-10.1) Neutrophils (%) (Auto) 65.2 % (45.0-75.0) Lymphocytes (%) (Auto) 21.1 % (20.0-45.0) Monocytes (%) (Auto) 8.4 % (1.0-10.0) Eosinophils (%) (Auto) 3.7 % (0.0-3.0) H Basophils (%) (Auto) 1.5 % (0.0-2.0) Sodium Level 140 MMOL/L (136-145) Potassium Level 3.6 MMOL/L (3.5-5.1) Chloride Level 104 MMOL/L (98-107) Carbon Dioxide Level 27 MMOL/L (21-32) Anion Gap 9 mmol/L (5-15) Blood Urea Nitrogen 27 mg/dL (7-18) H Creatinine 1.1 MG/DL (0.55-1.30) Estimat Glomerular Filtration Rate mL/min (>60) Glucose Level 125 MG/DL (74-106) H Calcium Level 8.3 MG/DL (8.5-10.1) L Phosphorus Level 3.7 MG/DL (2.5-4.9) Magnesium Level 2.1 MG/DL (1.8-2.4) Total Bilirubin 1.0 MG/DL (0.2-1.0) Aspartate Amino Transf (AST/SGOT) 35 U/L (15-37) Alanine Aminotransferase (ALT/SGPT) 26 U/L (12-78) Alkaline Phosphatase 53 U/L (46-116) Total Protein 7.1 G/DL (6.4-8.2) Albumin 3.3 G/DL (3.4-5.0) L Globulin 3.8 g/dL Albumin/Globulin Ratio 0.9 (1.0-2.7) L Current Medications Medications (Trade) Dose Ordered Sig/Alisson Route PRN Reason Start Time Stop Time Status Last Admin Dose Admin Acetaminophen (Tylenol) 650 mg Q4H PRN ORAL fever 07/17/17 16:45 08/15/17 12:44 Al Hydroxide/Mg Hydroxide (Mylanta II) 30 ml Q6H PRN ORAL dyspepsia 07/17/17 16:45 08/15/17 16:44 Albuterol/ Ipratropium (Albuterol/ Ipratropium) 3 ml Q4H PRN HHN Shortness of Breath 07/17/17 16:45 07/21/17 12:44 Azithromycin (Zithromax) 500 mg DAILY ORAL 07/18/17 09:00 07/24/17 23:59 07/19/17 08:19 Cefepime HCl 1 gm/ Sodium Chloride 55 ml @ 110 mls/hr Q24H IV 07/17/17 18:00 07/23/17 23:59 07/18/17 18:00 Cetylpyridinium Chloride (Cepacol) 1 lozg EVERY 2 HOURS PRN KIM For THROAT Pain 07/17/17 16:45 08/16/17 16:44 07/18/17 09:52 Clonidine HCl (Catapres Tab) 0.1 mg Q4H PRN ORAL for sbp more than 160 07/17/17 17:00 08/15/17 12:59 Docusate Sodium (Colace) 100 mg THREE TIMES A DAY ORAL 07/18/17 14:00 08/17/17 13:59 07/19/17 08:19 Heparin Sodium (Porcine) (Heparin 5000 units/ml) 5,000 units EVERY 12 HOURS SUBQ 07/18/17 21:00 08/15/17 20:59 07/19/17 08:53 Levothyroxine Sodium (Synthroid) 25 mcg ACBREAKFAST ORAL 07/18/17 06:30 08/16/17 06:29 07/19/17 06:11 Lisinopril (Prinivil) 40 mg DAILY ORAL 07/19/17 09:00 08/15/17 12:59 Mineral Oil (Fleet's Mineral Oil Enema) 133 ml EVERY OTHER DAY RECTAL 07/20/17 09:00 08/19/17 08:59 Nitroglycerin (Ntg) 0.4 mg Q5M PRN SL Prn Chest Pain 07/17/17 16:30 08/15/17 12:44 Ondansetron HCl (Zofran) 4 mg Q6H PRN IVP Nausea & Vomiting 07/17/17 16:48 08/15/17 16:47 Polyethylene Glycol (Miralax) 17 gm BEDTIME ORAL 07/18/17 21:00 08/17/17 20:59 07/18/17 20:35 Polyethylene Glycol (Miralax) 17 gm DAILYPRN PRN ORAL Constipation 07/17/17 16:48 08/16/17 16:47 Promethazine HCl/ Codeine (Phenergan with Codeine) 5 ml Q4H PRN ORAL For Cough 07/17/17 16:45 08/15/17 12:44 07/18/17 18:01 Sennosides (Senokot) 1 tab DAILY ORAL 07/19/17 09:00 08/18/17 08:59 Temazepam (Restoril) 15 mg HSPRN PRN ORAL Insomnia 07/17/17 16:48 07/24/17 16:47 Uziel Ansari MD Jul 19, 2017 11:24
[2017-07-19 12:00] VITALS: BP 124/74
--- NOTE | 2017-07-19 12:05 | Pulmonology Progress Note ---
Assessment/Plan Problems: (1) Pneumonia (2) Fever (3) Pleural effusion, left (4) Hypothyroidism (5) Hypertension Assessment/Plan improving, less cough no sputum yet, dulture pending continue abx, on Cefepime and Zithromx iv check cultures, sputum negative, Urine mixed cultures monitor BP dvt prophylaxis cxr reviewed, elevated Left diphragm Subjective ROS Limited/Unobtainable: No Constitutional: Reports: no symptoms HEENT: Repors: no symptoms Respiratory: Reports: no symptoms Allergies: Coded Allergies: No Known Allergies (Unverified , 11/09/12) Objective Last 24 Hour Vital Signs Date Time Temp Pulse Resp B/P (MAP) Pulse Ox O2 Delivery O2 Flow Rate FiO2 07/19/17 08:38 105/54 07/19/17 08:08 98.2 69 19 105/54 96 Room Air 98.2 07/19/17 07:40 70 18 Room Air 21 07/19/17 04:00 98.5 64 18 116/72 93 Room Air 98.5 07/19/17 00:00 97.7 61 18 142/73 94 Room Air 97.7 07/18/17 20:03 61 18 Room Air 21 07/18/17 20:00 98.3 61 20 122/67 94 Room Air 98.3 07/18/17 16:00 98.0 63 20 102/66 93 98.0 Intake and Output 07/18/17 07/19/17 19:00 07:00 Intake Total 450 ml 360 ml Balance 450 ml 360 ml Intake Oral 450 ml 360 ml # Voids 3 2 # Bowel Movements 1 Objective General Appearance: WD/WN Lines, tubes and drains: peripheral HEENT: normocephalic, atraumatic Neck: non-tender, normal alignment Respiratory/Chest: rhonchi - left, rhonchi - right Breasts: no masses Cardiovascular/Chest: normal peripheral pulses Abdomen: normal bowel sounds, soft Genitourinary/Rectal: normal genital exam, normal rectal exam Skin Exam: normal pigmentation Neurologic: water sponger II-XII grossly normal Microbiology Date/Time Source Procedure Growth Status 07/17/17 14:00 Sputum Gram Stain - Final Complete 07/17/17 14:00 Sputum Sputum Culture - Final NORMAL UPPER RESPIRATORY RAYMUNDO PRESENT Complete Laboratory Tests 07/19/17 08:00: White Blood Count 4.6L, Red Blood Count 4.84, Hemoglobin 13.4, Hematocrit 39.8, Mean Corpuscular Volume 82, Mean Corpuscular Hemoglobin 27.6, Mean Corpuscular Hemoglobin Concent 33.6, Red Cell Distribution Width 12.5, Platelet Count 124L, Mean Platelet Volume 6.6, Neutrophils (%) (Auto) 65.2, Lymphocytes (%) (Auto) 21.1, Monocytes (%) (Auto) 8.4, Eosinophils (%) (Auto) 3.7H, Basophils (%) (Auto ) 1.5, Sodium Level 140, Potassium Level 3.6, Chloride Level 104, Carbon Dioxide Level 27, Anion Gap 9, Blood Urea Nitrogen 27H, Creatinine 1.1, Estimat Glomerular Filtration Rate , Glucose Level 125H, Calcium Level 8.3L, Phosphorus Level 3.7, Magnesium Level 2.1, Total Bilirubin 1.0, Aspartate Amino Transf (AST /SGOT) 35, Alanine Aminotransferase (ALT/SGPT) 26, Alkaline Phosphatase 53, Total Protein 7.1, Albumin 3.3L, Globulin 3.8, Albumin/Globulin Ratio 0.9L Current Medications Medications (Trade) Dose Ordered Sig/Alisson Route PRN Reason Start Time Stop Time Status Last Admin Dose Admin Acetaminophen (Tylenol) 650 mg Q4H PRN ORAL fever 07/17/17 16:45 08/15/17 12:44 Al Hydroxide/Mg Hydroxide (Mylanta II) 30 ml Q6H PRN ORAL dyspepsia 07/17/17 16:45 08/15/17 16:44 Albuterol/ Ipratropium (Albuterol/ Ipratropium) 3 ml Q4H PRN HHN Shortness of Breath 07/17/17 16:45 07/21/17 12:44 Azithromycin (Zithromax) 500 mg DAILY ORAL 07/18/17 09:00 07/19/17 23:00 07/19/17 08:19 Cefepime HCl 1 gm/ Sodium Chloride 55 ml @ 110 mls/hr Q24H IV 07/17/17 18:00 07/19/17 23:00 07/18/17 18:00 Cetylpyridinium Chloride (Cepacol) 1 lozg EVERY 2 HOURS PRN KIM For THROAT Pain 07/17/17 16:45 08/16/17 16:44 07/18/17 09:52 Clonidine HCl (Catapres Tab) 0.1 mg Q4H PRN ORAL for sbp more than 160 07/17/17 17:00 08/15/17 12:59 Docusate Sodium (Colace) 100 mg THREE TIMES A DAY ORAL 07/18/17 14:00 08/17/17 13:59 07/19/17 08:19 Heparin Sodium (Porcine) (Heparin 5000 units/ml) 5,000 units EVERY 12 HOURS SUBQ 07/18/17 21:00 08/15/17 20:59 07/19/17 08:53 Levothyroxine Sodium (Synthroid) 25 mcg ACBREAKFAST ORAL 07/18/17 06:30 08/16/17 06:29 07/19/17 06:11 Lisinopril (Prinivil) 40 mg DAILY ORAL 07/19/17 09:00 08/15/17 12:59 Mineral Oil (Fleet's Mineral Oil Enema) 133 ml EVERY OTHER DAY RECTAL 07/20/17 09:00 08/19/17 08:59 Nitroglycerin (Ntg) 0.4 mg Q5M PRN SL Prn Chest Pain 07/17/17 16:30 08/15/17 12:44 Ondansetron HCl (Zofran) 4 mg Q6H PRN IVP Nausea & Vomiting 07/17/17 16:48 08/15/17 16:47 Polyethylene Glycol (Miralax) 17 gm BEDTIME ORAL 07/18/17 21:00 08/17/17 20:59 07/18/17 20:35 Polyethylene Glycol (Miralax) 17 gm DAILYPRN PRN ORAL Constipation 07/17/17 16:48 08/16/17 16:47 Promethazine HCl/ Codeine (Phenergan with Codeine) 5 ml Q4H PRN ORAL For Cough 07/17/17 16:45 08/15/17 12:44 07/18/17 18:01 Sennosides (Senokot) 1 tab DAILY ORAL 07/19/17 09:00 08/18/17 08:59 Temazepam (Restoril) 15 mg HSPRN PRN ORAL Insomnia 07/17/17 16:48 07/24/17 16:47 Dottie Flores MD Jul 19, 2017 12:05
[2017-07-20] MEDS ORDERED: Fleet's Mineral Oil Enema RECTAL SCH (09:00)
--- NOTE | 2017-07-20 13:49 | Discharge Summary ---
Discharge Summary Hospital Course Date of Admission Jul 16, 2017 at 09:43 Date of Discharge Jul 19, 2017 at 16:34 Admitting Diagnosis Pneumonia HPI Dari Leung is a 87 year old female who was admitted on Jul 16, 2017 at 09:43 for Pneumonia Hospital Course [id number] Discharge Discharge Disposition Patient was discharged to Home (01) Jazmin Blood NP Jul 20, 2017 13:49
--- NOTE | 2017-07-21 03:30 | Discharge Summary 2 SIG ---
DATE OF ADMISSION: 07/16/2017 DATE OF DISCHARGE: 07/19/2017 CONSULTANTS: 1. Dottie Flores M.D. 2. Uziel Ansari M.D. BRIEF HOSPITAL COURSE: The patient is an 87-year-old white female, who presented to ED with chief complaint of fever and cough. Symptoms began five days prior to admission. The patient experience fever, sore throat, temperature reached to 102 degrees Fahrenheit. She also complained of cough productive of greenish sputum. She has medical history significant for hypertension, hypothyroidism, and hypercholesterolemia. On evaluation at ED, there was no leukocytosis. Chest x-ray showed no acute disease. Chest x-ray showed left effusion with infiltrate. She had low potassium and slightly elevated glucose level 138. BNP was mildly elevated to 419. Troponin was negative. She was pancultured. She was started on gentle IV hydration. Influenza swabs were negative. She was then admitted for evaluation of fever and cough. She was seen by Infectious Disease specialist and was continued on cefepime and Zithromax. Vancomycin was discontinued. She was given nebulizer treatments. Blood culture did not isolate any growth. Sputum culture with normal upper respiratory larisa. She was continued on her antihypertensives and Synthroid. She had a video swallow evaluation that was positive for penetration of thin liquid volume. She was then recommended strict aspiration precaution and continue with soft chew diet with thin liquids. She completed five days of cefepime and Zithromax. She had episodes of thrombocytopenia. HIV and hepatitis panel was negative. She was eventually discharged home. FINAL DIAGNOSES: 1. Acute bronchitis. 2. Hypercholesterolemia. 3. Pleuritic chest pain. 4. Hypothyroidism. 5. Hypertension. 6. Pneumonia. 7. Pancytopenia. DISPOSITION: The patient was discharged home. DISCHARGE MEDICATIONS: Refer to medication list. DISCHARGE INSTRUCTIONS: Follow up with PCP in a week. Rafi Coleman M.D. I have been assigned to dictate discharge summary on this account and I was not involved in the patient's management. Jazmin Blood N.P. DR: ROSARIO JOB#: [id number] CC:
== END 2017-07-19 16:34 | disposition home or self-care (01) | DRG 194 ==
LOC: EDBD 09:08 → EMR 09:39 → 2E 09:43 → EDBEDREQ 11:17 → 2E 13:36 → 3E 07-17 16:20
DX: J18.9 Pneumonia, unspecified organism (principal); D61.818 Other pancytopenia; J20.9 Acute bronchitis, unspecified; I10 Essential (primary) hypertension; E03.9 Hypothyroidism, unspecified; E87.6 Hypokalemia; E78.00 Pure hypercholesterolemia, unspecified; Z96.642 Presence of left artificial hip joint
CPT/HCPCS: 36415; 71045; 74230; 80048; 80053; 80069; 81003; 82248; 82550; 83605; 83735; 83880; 84100; 84484; 85007; 85025; 85610; 85651; 85730; 86703; 86705; 86709; 86710; 86803; 87040; 87070; 87086; 87205; 87340; 93005; 94664; 99285; J8499